=== PATIENT | male | born 1955 | race Caucasian/White ===

== ENCOUNTER 2022-06-06 13:34 | Inpatient (IN) | payer MEDICARE, OTHER ==
[~2022-06-06] VITALS: Ht 167.6 cm; Wt 54.0 kg
--- NOTE | 2022-06-06 13:40 | NUR ---
RECEIVED PT 67 YRS MALE TRANSFER BY CORINNE FROM [facility] FOR RT ARM AV SHUNT BLEEDING PT AWAKE FALLOW COMMAND
[2022-06-06] MEDS ORDERED: MIDODRINE HCL (5MG) 5 MG TABLET PO STA (13:50)
--- NOTE | 2022-06-06 13:50 | NUR ---
SEEN BY DR. DU
[2022-06-06] MEDS ORDERED: IV NS 0.9% 500 ML BAG IV ONE (14:00)
--- NOTE | 2022-06-06 14:00 | NUR ---
BLOOD DROW BY LAB TACH AT BED SIDE
--- NOTE | 2022-06-06 14:30 | NUR ---
NGUYỄN LEPE SENT TO LAB
[2022-06-06] MEDS ORDERED: ASPI-1169 PO (14:32)
[2022-06-06] MEDS ORDERED: BISA10SU11 RC (14:32)
[2022-06-06] MEDS ORDERED: SODI480S2 TD (14:32)
[2022-06-06] MEDS ORDERED: MIDO10TA PO (14:32)
[2022-06-06] MEDS ORDERED: FAMO20TA8 PO (14:32)
[2022-06-06] MEDS ORDERED: SIMV5TAB59 PO (14:32)
[2022-06-06] MEDS ORDERED: CYCL30DR EACHEYE (14:32)
[2022-06-06] MEDS ORDERED: INSU100I26 SQ (14:32)
[2022-06-06] MEDS ORDERED: OMEP20CA15 PO (14:32)
[2022-06-06] MEDS ORDERED: ACET-2605 PO (14:32)
[2022-06-06] MEDS ORDERED: BRIM5DRO2 EACHEYE (14:32)
[2022-06-06] MEDS ORDERED: INSU100I14 SQ (14:32)
[2022-06-06] MEDS ORDERED: NA P133E RC (14:32)
[2022-06-06] MEDS ORDERED: BIMA2.5D5 EACHEYE (14:32)
[2022-06-06] MEDS ORDERED: COLL30OI TP (14:32)
[2022-06-06] MEDS ORDERED: FERR325T23 PO (14:32)
[2022-06-06] MEDS ORDERED: TAMS-12 PO (14:32)
[2022-06-06] MEDS ORDERED: CHOL100043 PO (14:32)
[2022-06-06] MEDS ORDERED: FINA5TAB11 PO (14:32)
[2022-06-06] MEDS ORDERED: ACET-868 PO (14:32)
[2022-06-06] MEDS ORDERED: FLUD0.1T3 PO (14:32)
[2022-06-06] MEDS ORDERED: MAGN400O6 PO (14:32)
[2022-06-06] MEDS ORDERED: PIPE2.257 IV (14:32)
[2022-06-06] MEDS ORDERED: CALCIUM ALGINATE TD (14:32)
[2022-06-06] MEDS ORDERED: DORZ10DR10 EACHEYE (14:32)
[2022-06-06] MEDS ORDERED: HONE44PA TP (14:32)
[2022-06-06] MEDS ORDERED: EPOE1000 SQ (14:32)
[2022-06-06] MEDS ORDERED: MIDODRINE HCL (5MG) 5 MG TABLET ONE (14:41)
[2022-06-06 14:44] LABS: BASOPHILS % (AUTO) 0.2 % (0.0-2.0); EOSINOPHILS % (AUTO) 5.6 % (0.0-6.0); HEMATOCRIT 27 % (39-51); HEMOGLOBIN 8.5 g/dL (13.5-17.5); LYMPHOCYTES # (AUTO) 0.7 K/uL (0.8-4.8); LYMPHOCYTES % (AUTO) 29.9 % (20.0-44.0); MEAN CORPUSCULAR HGB CONC 32 g/dl (31.0-36.0); MEAN CORPUSCULAR VOLUME 95 fL (80-96); MONOCYTES # (AUTO) 0.2 K/uL (0.1-1.30); MONOCYTES % (AUTO) 8.7 % (2.0-12.0); NEUTROPHILS # (AUTO) 1.3 K/uL (1.8-8.9); NEUTROPHILS % (AUTO) 55.6 % (43.0-81.0); RED BLOOD CELL COUNT(AUTO) 2.82 MIL/uL (4.5-6.0); WHITE BLOOD COUNT (AUTO) 2.3 K/uL (4.3-11.0)
[2022-06-06 14:52] LABS: PLATELET COUNT (AUTO) 24 K/uL (150-450)
[2022-06-06 15:13] LABS: ALBUMIN 2.4 g/dL (3.4-5.0); BILIRUBIN,DIRECT 0.2 mg/dL (0.0-0.2); BILIRUBIN,TOTAL 0.6 mg/dL (0.2-1.0); CALCIUM, SERUM 8.3 mg/dL (8.5-10.1); POTASSIUM 4.7 mmol/L (3.5-5.1); TOTAL PROTEIN, SERUM 5.9 g/dL (6.4-8.2)
--- NOTE | 2022-06-06 15:14 | NUR ---
SHERRI AND AUGUSTINE OBSERVE PT
[2022-06-06] MEDS ORDERED: DEXTROSE 50%-WATER 50 ML DISP.SYRIN IV PRN (15:30)
[2022-06-06] MEDS ORDERED: ACETAMINOPHEN 325 MG TABLET PO PRN ×2 (15:30→19:30)
[2022-06-06] MEDS ORDERED: ACETAMINOPHEN ES 500 MG TABLET PO PRN (15:30)
[2022-06-06] MEDS ORDERED: MAGNESIUM HYDROXIDE 30 ML UDC PO PRN ×2 (15:30→19:30)
--- NOTE | 2022-06-06 15:47 | NUR ---
CALLED NURSING SUP REGARDING PT BED
--- NOTE | 2022-06-06 16:01 | NUR ---
ELIZABETH AT BED SIDE CONDITION UP DATE MATT HOFFMAN
[2022-06-06] MEDS ORDERED: Medication Not On Formulary EA (Cyclosporine (Restasis) 1 DROP) EACHEYE SCH (17:00)
[2022-06-06 17:37] LABS: BAND % (MANUAL) 2 % (0.0-5.0); EOSINOPHILS % (MANUAL) 4 % (0-4); LYMPHOCYTES % (MANUAL) 32 % (16-48); NEUTROPHILS % (MANUAL) 62 (42-76)
[2022-06-06] MEDS ORDERED: PIPERACILLIN /TAZOBACTAM 3.375 G in IV D5W 50 ML IV SCH (18:00)
[2022-06-06] MEDS: BLOOD SUGAR DIAGNOSTIC 1 EACH STRIP VI SCH (18:03)
--- NOTE | 2022-06-06 19:20 | NUR ---
SIGN CONSENT FOR BLOOD TRANSFUTION PT UNABLE TO SING FOR PT CONFUSED ON AND OFF AND WEEKNEES ON HIS FIGER
--- NOTE | 2022-06-06 19:28 | NUR ---
HAND OFF SYLVIE LEE
[2022-06-06] MEDS ORDERED: ZOLPIDEM TARTRATE 5 MG TABLET PO PRN (19:30)
[2022-06-06] MEDS ORDERED: INSULIN REGULAR, HUMAN 100 UNIT/ML 3 ML VIAL SQ PRN (19:30)
[2022-06-06] MEDS ORDERED: ONDANSETRON HCL/PF 4 MG/2 ML VIAL IVP PRN (19:30)
[2022-06-06] MEDS ORDERED: MAG HYDROX/AL HYDROX/SIMETH 30 ML UDC PO PRN (19:30)
[2022-06-06] MEDS ORDERED: Z GUARD REMEDY 4 OZ OINT TP PRN (19:30)
[2022-06-06] MEDS ORDERED: PHYTONADIONE INJ 1 MG/0.5 ML AMPUL SQ ONE (20:00)
[2022-06-06] MEDS: BIMATOPROST 2.5 ML DROPS OP SCH (23:51)
[2022-06-07] VITALS (14 sets, daily range): BP systolic 102–156; BP diastolic 50–78
--- NOTE | 2022-06-07 00:58 | NUR ---
Trevor bhagat in [facility] - 06/07/22 at 0118 by ELKE REPORT GIVEN TO JESUS MATHEW.
--- NOTE | 2022-06-07 00:58 | NUR ---
REPORT GIVEN TO JESUS GARZA.
--- NOTE | 2022-06-07 01:16 | NUR ---
PT TRANSFERRED TO ROOM 113-2.
[2022-06-07 01:36] LABS: BASOPHILS % (AUTO) 0.8 % (0.0-2.0); EOSINOPHILS % (AUTO) 6.7 % (0.0-6.0); HEMATOCRIT 30 % (39-51); HEMOGLOBIN 9.6 g/dL (13.5-17.5); LYMPHOCYTES # (AUTO) 0.9 K/uL (0.8-4.8); LYMPHOCYTES % (AUTO) 31.7 % (20.0-44.0); MEAN CORPUSCULAR HGB CONC 32 g/dl (31.0-36.0); MEAN CORPUSCULAR VOLUME 92 fL (80-96); MONOCYTES # (AUTO) 0.3 K/uL (0.1-1.30); MONOCYTES % (AUTO) 10.3 % (2.0-12.0); NEUTROPHILS # (AUTO) 1.5 K/uL (1.8-8.9); NEUTROPHILS % (AUTO) 50.5 % (43.0-81.0); WHITE BLOOD COUNT (AUTO) 2.9 K/uL (4.3-11.0)
[2022-06-07 01:48] LABS: PLATELET COUNT (AUTO) 24 K/uL (150-450)
[2022-06-07] MEDS ORDERED: PIPERACILLIN /TAZOBACTAM 3.375 G VIAL IV ONE (02:03)
[2022-06-07 02:05] LABS: D-DIMER 1.57 mg/L(FEU (0.17-0.50)
[2022-06-07] MEDS: TAMSULOSIN 0.4 MG CAP.SR.24H PO SCH ×2 (02:07→21:25)
[2022-06-07] MEDS: BLOOD SUGAR DIAGNOSTIC 1 EACH STRIP IN SCH ×5 (02:19→21:48)
[2022-06-07] MEDS: BLOOD SUGAR DIAGNOSTIC 1 EACH STRIP VI SCH (02:20)
[2022-06-07] MEDS: *INSULIN REGULAR(HUMULIN R)HUM 100 UNIT/ML VIAL SQ PRN (02:29)
--- NOTE | 2022-06-07 06:03 | NUR ---
RN NOTE INFORMED VEL HIRED HELP PATIENT RECTAL TEMP 93.6. NO ACTIVE BLEEDING BP 120/ HR 60. SILVANA HUGGER ALREADY APPLIED. PATIENT ROOM IS VERY COLD. RECEIVED ORDER TO MOVE ROOM. APPLY WARM BLANKETS AND WARMING PACKS.
--- NOTE | 2022-06-07 06:05 | NUR ---
RN NOTE INFORMED VEL TEAR DOWN WORKER THAT PATIENT DID NOT RECEIVE VITAMIN K. NO NEW LABS FOR COAGS DRAWN. THERE IS ORDERS FOR CBC Q6HR. DISCUSSING POSSIBLE WRONG DATE ENTERED BY LAB. OFFERED TO CALL [facility] FOR VITAMIN K TO BE VERIFIED AND GIVEN, STATED TO WAIT FOR AM COAGS. WILL ENDORSE TO ONCOMING SHIFT. ALSO INFORMED HER PLATELETS JUST BECAME AVAILABLE. 2 UNITS OF FFP STILL NOT AVAILABLE.
--- NOTE | 2022-06-07 06:20 | NUR ---
RN NOTE PATIENT TRANSFERED TO DIFFERENT ROOM. SILVANA TANNER IN TOW. WARM PACKS AND WARM BLANKETS APPLIED.
[2022-06-07 07:23] LABS: BASOPHILS % (AUTO) 0.6 % (0.0-2.0); EOSINOPHILS % (AUTO) 7.2 % (0.0-6.0); HEMATOCRIT 29 % (39-51); HEMOGLOBIN 9.4 g/dL (13.5-17.5); LYMPHOCYTES # (AUTO) 0.9 K/uL (0.8-4.8); LYMPHOCYTES % (AUTO) 36.2 % (20.0-44.0); MEAN CORPUSCULAR HGB CONC 32 g/dl (31.0-36.0); MEAN CORPUSCULAR VOLUME 91 fL (80-96); MONOCYTES # (AUTO) 0.3 K/uL (0.1-1.30); MONOCYTES % (AUTO) 11.4 % (2.0-12.0); NEUTROPHILS # (AUTO) 1.1 K/uL (1.8-8.9); NEUTROPHILS % (AUTO) 44.6 % (43.0-81.0); RED BLOOD CELL COUNT(AUTO) 3.22 MIL/uL (4.5-6.0); WHITE BLOOD COUNT (AUTO) 2.5 K/uL (4.3-11.0)
[2022-06-07] MEDS: PANTOPRAZOLE 40 MG TABLET.DR PO SCH (07:30)
[2022-06-07 07:34] LABS: PLATELET COUNT (AUTO) 23 K/uL (150-450)
[2022-06-07 07:36] LABS: ALBUMIN 2.4 g/dL (3.4-5.0); BILIRUBIN,TOTAL 0.8 mg/dL (0.2-1.0); CALCIUM, SERUM 8.3 mg/dL (8.5-10.1); CREATININE 2.3 mg/dL (0.6-1.3); PHOSPHORUS 3.1 mg/dL (2.5-4.9); POTASSIUM 4.7 mmol/L (3.5-5.1); TOTAL PROTEIN, SERUM 5.7 g/dL (6.4-8.2)
--- NOTE | 2022-06-07 07:45 | NUR ---
RN CLOSING NOTE A/OX1. ROOM AIR. SINUS RHYTHM/ SINUS GERDA ON THE MONITOR HR LOW 59. COLOSTOMY BAG WITH GREEN LIQUID OUTPUT. PATIENT HAS BEEN NPO SINCE ARRIVAL TO UNIT. PLAN FOR SURGERY 1500 FOR PERMA CATH AND AV SHUNT REVISION. RENÉ AV SHUNT IS WRAPPED IN BALDEV WRAP, SCANT BLEEDING NOTED. WOUND CONSULT ENTERED. PLAN FOR PLATELET TRANSFUSION X1, AND FFP TRANSFUSION X2. PATIENT DID HAVE AN EPISODE HYPOTHERMIA, WITH SILVANA HUGGER AND WARMING MEASURES DONE.
--- NOTE | 2022-06-07 08:00 | NUR ---
HZEN RN noted Received patient in the bed, sleeping but easily response to verbal stimuli, alert x1. Patient has right BKA and RENÉ fistula, wrapped with BALDEV bandage, noted swollen on this arm, released bandage, keep arm elevated, no bleeding noted at this time. Left hand IV HL not flushing well, new one placed on left wrist rajinder 20. Patient on NPO at this time. Will administer platelets as soon as we have call from lab. Call light within reach, safety measures within reach, bed alarm is on, will continue to monitor.
[2022-06-07] MEDS: FINASTERIDE (5 MG) 5 MG TABLET PO SCH (09:00)
[2022-06-07] MEDS: CHOLECALCIFEROL 1,000 UNIT TABLET (VIT D3) PO SCH (09:00)
[2022-06-07] MEDS: FLUDROCORTISONE 0.1 MG TABLET PO SCH (09:00)
[2022-06-07] MEDS: MIDODRINE HCL (5MG) 5 MG TABLET PO SCH ×2 (09:00→16:47)
[2022-06-07] MEDS: FERROUS SULFATE (325 MG) 325 MG/TAB TABLET PO SCH (09:00)
[2022-06-07] MEDS: BRIMONIDINE TARTRATE OPHT SOLN 5 ML BOTTLE EACHEYE SCH (09:02)
[2022-06-07] MEDS: PIPERACILLIN /TAZOBACTAM 3.375 G in IV D5W 50 ML IV SCH ×4 (09:02→23:25)
[2022-06-07] MEDS: TIMOLOL 0.5% SOLN OPHTH 5 ML BOTTLE EACHEYE SCH (09:02)
[2022-06-07] MEDS: DORZOLAMIDE OPTH 2% 10 ML BOTTLE EACHEYE SCH (09:02)
[2022-06-07 09:43] LABS: BAND % (MANUAL) 4 % (0.0-5.0); EOSINOPHILS % (MANUAL) 4 % (0-4); LYMPHOCYTES % (MANUAL) 26 % (16-48); MONOCYTES % (MANUAL) 7 % (0-11.0); NEUTROPHILS % (MANUAL) 59 (42-76)
--- NOTE | 2022-06-07 10:00 | NUR ---
ZHEN RN NOTE PLATELETS TRANSFUSION ,NO ADVERSE REACTION NOTED AT THIS TIME
[2022-06-07 10:31] LABS: BAND % (MANUAL) 4 % (0.0-5.0); EOSINOPHILS % (MANUAL) 7 % (0-4); LYMPHOCYTES % (MANUAL) 31 % (16-48); MONOCYTES % (MANUAL) 8 % (0-11.0); NEUTROPHILS % (MANUAL) 50 (42-76)
--- NOTE | 2022-06-07 11:03 | NUR ---
ZHEN RN NOTE CALLED DAUGHTER HERNESTO AX3 TO GET CONSENT FOR AV FISTULA REPAIR AND SPOUSE JAIME X2 LEFT A MASSAGE NO CALLED BACK YET ALSO CALLED TO DR LARSON NOTIFIED THAT FAMILY NOT CALLING BACK YET STATED NEED CONSENT FROM FAMILY OR WILL CANCELL PROCEDURE
[2022-06-07] MEDS ORDERED: PIPERACILLIN /TAZOBACTAM 3.375 G in IV D5W 50 ML IV SCH ×3 (12:00)
--- NOTE | 2022-06-07 12:32 | NUR ---
HYDRAULIC MECHANIC NOTE CALLED BACK ,TELEPHONE CONSEPT FOR HD CATH PLACE DONE , PLATELET COMPLETED BP 107/60 NO ADDRESS REACTION NOTED Addendum: 06/07/22 at 1250 by ALBERTO LUND RN CONSENT FOR HD TX OBTAINED WITH GUS
--- NOTE | 2022-06-07 13:35 | NUR ---
shiloh lee note per Thomas lee dental ceramist helper hold plasma transfusion inr is improving will call blood bank Addendum: 06/07/22 at 1339 by ALBERTO LUND RN ALSO PER THOMAS LEE ASSEMBLER WET WASH OK TO START RENAL DIET AND SWALLOW EVAL, WILL F\U
[2022-06-07] MEDS ORDERED: IOHEXOL 0 ML IV ONE (13:37)
[2022-06-07] MEDS ORDERED: LIDOCAINE HCL/MPF 1% 30 ML VIAL IJ ONE (13:37)
[2022-06-07] MEDS ORDERED: HEPARIN SODIUM, PORCINE 1,000 UNIT/ML VIAL ONE (13:38)
[2022-06-07] MEDS ORDERED: LIDOCAINE 1% INJ 50 ML MDV IJ ONE (13:39)
[2022-06-07] MEDS ORDERED: IOHEXOL 240MG/ML 0 ML IV ONE ×2 (13:41→13:42)
[2022-06-07] MEDS ORDERED: CELLULOSE,OXIDIZED 1 EACH EACH MC ONE (13:45)
--- NOTE | 2022-06-07 14:48 | NUR ---
PUTTER IN NOTE PATIENT TAKEN TO OR WITH OR NURSE
[2022-06-07] MEDS ORDERED: PROPOFOL 100 ML ONE (15:01)
[2022-06-07] MEDS ORDERED: FENTANYL PF 100MCG/2ML AMPUL ONE (15:01)
[2022-06-07 15:03] LABS: HEMOGLOBIN 9.1 g/dL (13.5-17.5); MONOCYTES # (AUTO) 0.2 K/uL (0.1-1.30); NEUTROPHILS # (AUTO) 1.5 K/uL (1.8-8.9); WHITE BLOOD COUNT (AUTO) 2.8 K/uL (4.3-11.0)
[2022-06-07 15:08] LABS: BASOPHILS % (AUTO) 1.4 % (0.0-2.0); EOSINOPHILS % (AUTO) 5.4 % (0.0-6.0); HEMATOCRIT 29 % (39-51); LYMPHOCYTES % (AUTO) 34.1 % (20.0-44.0); MEAN CORPUSCULAR HGB CONC 32 g/dl (31.0-36.0); MEAN CORPUSCULAR VOLUME 92 fL (80-96); MONOCYTES % (AUTO) 6.9 % (2.0-12.0); NEUTROPHILS % (AUTO) 52.2 % (43.0-81.0); RED BLOOD CELL COUNT(AUTO) 3.12 MIL/uL (4.5-6.0)
[2022-06-07 15:10] LABS: PLATELET COUNT (AUTO) 43 K/uL (150-450)
--- NOTE | 2022-06-07 15:32 | NUR ---
METAL EXPEDITER NOTE CALLED TO LAB FO FIBRINOGEN RESULT STATED MACHINE IS BROKEN WILL RERUN AGAIN, WILL F\U STATED THAT WILL CALL US, SPOKE WITH KHRIS
--- NOTE | 2022-06-07 16:00 | NUR ---
television servicer note back from or, per report pat rn or nurse av fistula is working well ,no need to change , hd nurse at bedside ,ok to do hd tx tomorrow
--- NOTE | 2022-06-07 16:12 | NUR ---
telecommunications engineer note
--- NOTE | 2022-06-07 16:34 | NUR ---
cable television technician note called blood bank , notified that we need 10 units of cryo ststed that to prepare it takes about45 min will f\u
[2022-06-07 16:46] LABS: THYROID STIMULATING HORMONE 6.597 uIU/mL (0.358-3.74)
[2022-06-07 16:58] LABS: C-REACTIVE PROTEIN 4.6 mg/dL (0.0-0.9)
--- NOTE | 2022-06-07 17:46 | NUR ---
telecom billing analyst note called blood bank spoke with alethea about cryo to be ready to transfuse stated still not ready ,will f\u
--- NOTE | 2022-06-07 18:00 | NUR ---
telephone sex worker note SPOKE WITH BART LEE SAMPLE SUPERVISOR BULK DELIVERY DRIVER ABOUT ORDER VIT K STATED NO NEED TODAY ALSO OK TO HOLD PLASMA AND OK TO GIVE CRYO TODAY STILL AWAITING FROM LAB
--- NOTE | 2022-06-07 18:27 | NUR ---
vulcanizer operator Notes Patient awake alert with some confusion. Patient has colostomy on right lower quadrant of abdomen with green brown color liquid stool noted. Started on purred diet, tolerated well, chest X Ray done, no results yet. Called DR Manuel ordered Vit K. Will follow up. Ultrasound abdomen will done soon. Safety measures implemented, right upper arm fistula in place with bruit sound. IV on left wrist intact and flushed well, will continue to monitor
[2022-06-07] MEDS: PHYTONADIONE INJ 10 MG/1 ML AMPUL SQ SCH (18:34)
--- NOTE | 2022-06-07 18:40 | NUR ---
SOFTWARE ASSET MANAGEMENT ANALYST NOTE CALLED BLOOD BANK ,SPOKE WITH KRISTINE STATED THAT BLOOD NOT READY YET, WILL BE READY IN 45 MINUTES WILL F\U
--- NOTE | 2022-06-07 19:30 | NUR ---
manager retail store opening note Received patient in bed, awake, daughter on bed side. Pt is a/o x 1, st helenian speaking only. Currently on RA, tolerating well, sating @ 98%. monitoring analyst reads SR, HR 70s. IV access on L wrist, #20g. Patent and intact. RENÉ Fistula noted. Colostomy noted, draining greenish-colored output. Patient has right BKA and L foot stump. All safety measures in place: Bed locked in low position, bed alarm on. Call light within reach. Will continue to monitor.
[2022-06-07 21:09] LABS: EOSINOPHILS % (MANUAL) 3 % (0-4); LYMPHOCYTES % (MANUAL) 28 % (16-48); MONOCYTES % (MANUAL) 3 % (0-11.0); NEUTROPHILS % (MANUAL) 66 (42-76)
[2022-06-07] MEDS: SIMVASTATIN 10 MG TABLET PO SCH (21:25)
[2022-06-07] MEDS: BIMATOPROST 2.5 ML DROPS OP SCH (21:56)
--- NOTE | 2022-06-07 23:05 | NUR ---
RN NOTE CRYO TRANSFUSION STARTED @ 2303 INITIAL VS TEMP: 97.9 PULSE: 72 RR: 20 BP: 114/63
--- NOTE | 2022-06-07 23:30 | NUR ---
RN NOTE CRYO TRANSFUSION ON GOING. NO ADVERSE REACTION NOTED SO FAR. ALL VS STABLE.
[2022-06-08] VITALS (64 sets, daily range): BP systolic 87–184; BP diastolic 36–94
--- NOTE | 2022-06-08 00:43 | NUR ---
RN NOTE CRYO TRANSFUSION ENDED @ 0041. NO ADVERSE REACTION NOTED. ALL VS STABLE.
--- NOTE | 2022-06-08 01:30 | NUR ---
RN NOTE SECOND BAG OF CRYO STARTED. ALL VS WNL.
--- NOTE | 2022-06-08 02:30 | NUR ---
RN NOTE PT IN BED, RESTING COMFORTABLY. PM CARE DONE. TURNED AND REPOSITIONED. PT IN NO APPARENT DISTRESS.
--- NOTE | 2022-06-08 04:42 | NUR ---
PATIENT NOTED DROPPING SUDDENLY FROM SINUS RHYTHM TO GERDA 30 IN MONITOR, RUN TO ROOM AND LEAD PROGRAMMER JUST FINISHED TAKING VITALS SIGNS, UNABLE TO GET PULSE O2 LEVEL, NOTED RT DOING ROUNDS AT THAT TIME, SUMMONED TO ROOM, PATIENT NOT BREATHING, PULSE UNABLE TO OBTAIN, START BAGGING PATIENT AND CHEST COMPRESSIONS INITIATED, ASHLIE MI CALLED, PLEASE SEE ASHLIE MI REPORT FOR DETAILS.
--- NOTE | 2022-06-08 04:50 | NUR ---
RN NOTE CODE BLUE WAS CALLED. PT'S EKG DROPPED IN LESS THAN A MINUTE. PT WAS SR THE WHOLE NIGHT. AT AROUND 0443, PT SUDDENLY WENT SB. O2 SAT WAS CHECKED AND IT WAS @ 4%. PT WAS INTUBATED AND BROUGHT TO ICU FOR FURTHER MONITORING AND TREATMENT.
--- NOTE | 2022-06-08 05:00 | NUR ---
BAKERY ASSISTANT OPENING NOTE PT RECEIVED AFTER CODE BLUE, FOUND ASYSTOLE AND FOUND O2SAT TO BE 4%, BG 10 MG/DL. PT INTUBATED WITH ETT SIZE 7.5, 23 CM AT THE LIP WITH O2SAT 100%; NO S/S OF RESP DISTRESS, NO SOB OR COUGH, NON-LABORED AND EQUAL BREATHING. PT ATTACHED TO BEDSIDE MONITOR, SR WITH HR OF 78. PT OPENS EYES, APPEARS COMFORTABLE OVERALL. RLQ COLOSTOMY IN PLACE WITH SOFT BROWN STOOL. RFA AV FISTULA IN PLACE WITH BRUIT AUSCULTATED AND BRUIT PALPABLE. IV ACCESS ON LFA 20G, INTACT AND PATENT, NS TKO INFUSING. BILATERAL SOFT WRIST RESTRAINTS IN PLACE, NO SIGNS OF IMPAIRED SKIN OR CIRCULATION. BED IN LOWEST POSITION, CALL LIGHT WITHIN REACH, SIDE RAILS UP X3. WILL CONTINUE TO MONITOR THROUGHOUT THE NIGHT.
--- NOTE | 2022-06-08 05:05 | NUR ---
SPENCER JULIO AWARE THAT PATIENT CODED, WAS INTUBATED AND TRANSFERRED TO ICU TO ROOM 256, AND HE REPLIED WITH ORDERS FOR CXR, EKG, CBC, BMP, WILL INFORM FAMILY REGARDING TRANSFER.
[2022-06-08] MEDS: PIPERACILLIN /TAZOBACTAM 3.375 G in IV D5W 50 ML IV SCH ×3 (05:17→17:34)
--- NOTE | 2022-06-08 05:23 | NUR ---
CALLED DAUGHTER MATT AT [phone], UNABLE TO REACH LEFT MESSAGE REGARDING HER FATHER TRANSFER TO ICU ROOM 256, AND THAT SHE CAN CALL FOR MORE DETAILS AT OUR PHONE NUMBER OR ICU DEPARTMENT.
[2022-06-08] MEDS ORDERED: BLOOD SUGAR DIAGNOSTIC 1 EACH STRIP IN PRN (05:30)
[2022-06-08 05:45] LABS: HEMATOCRIT 29 % (39-51); HEMOGLOBIN 8.8 g/dL (13.5-17.5); MEAN CORPUSCULAR HGB CONC 31 g/dl (31.0-36.0); MEAN CORPUSCULAR VOLUME 95 fL (80-96); WHITE BLOOD COUNT (AUTO) 4.9 K/uL (4.3-11.0)
[2022-06-08 05:46] LABS: BASOPHILS % (AUTO) 0.6 % (0.0-2.0); EOSINOPHILS % (AUTO) 3.7 % (0.0-6.0); LYMPHOCYTES % (AUTO) 39.9 % (20.0-44.0); MONOCYTES # (AUTO) 0.3 K/uL (0.1-1.30); MONOCYTES % (AUTO) 5.8 % (2.0-12.0); NEUTROPHILS # (AUTO) 2.5 K/uL (1.8-8.9); PLATELET COUNT (AUTO) 41 K/uL (150-450)
--- NOTE | 2022-06-08 05:50 | NUR ---
RT NOTE CALLED TO ROOM FOR PT DESATTING. PT WAS AGONAL BREATHING THEN BECAME APNEIC. ACLS PROTOCOL INTITIATED AND PT INTUBATED VIA 7.5 ETT @ 23 CM LIPLINE. EQUAL BS & POSITIVE COLOR CHANGE NOTED. PT TRANSFERRED TO ICU AND PLACED ON [facility] V[facility] AC 16,450,100%,+[address] BERRY'S ORDER. ABG DONE AND FIO2 TITRATED. WILL CONT TO MONITOR.
[2022-06-08 06:01] LABS: ALBUMIN 2.5 g/dL (3.4-5.0); BILIRUBIN,TOTAL 0.7 mg/dL (0.2-1.0); CALCIUM, SERUM 8.9 mg/dL (8.5-10.1); CREATININE 3.1 mg/dL (0.6-1.3); MAGNESIUM 2.1 mg/dL (1.8-2.4); PHOSPHORUS 3.9 mg/dL (2.5-4.9); POTASSIUM 4.9 mmol/L (3.5-5.1); TOTAL PROTEIN, SERUM 6.3 g/dL (6.4-8.2)
[2022-06-08 06:21] LABS: CREATININE 3.1 mg/dL (0.6-1.3)
--- NOTE | 2022-06-08 07:00 | NUR ---
received in bed , eyes open cannot follow simple command orally intubated, fio2 is 24% saturation is 99% OG tube iinserted , pending chest xray. 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 family said it was done 2021. Will continue to monitor
[2022-06-08] MEDS: PANTOPRAZOLE 40 MG TABLET.DR PO SCH (07:30)
[2022-06-08] MEDS ORDERED: DEXTROSE 50%-WATER 50 ML DISP.SYRIN IV ONE ×2 (08:01→11:10)
[2022-06-08] MEDS ORDERED: EPINEPHRINE (1:10,000) SYRINGE 1 MG/10 ML DISP.SYRIN IVP ONE ×2 (08:01→11:10)
[2022-06-08] MEDS ORDERED: CALCIUM CHLORIDE 1,000 MG/10 ML DISP.SYRIN IV ONE ×2 (08:01→11:10)
[2022-06-08 08:07] LABS: IMMUNOGLOBULIN A, SERUM 726 mg/dL (61-437); IMMUNOGLOBULIN G, SERUM 1077 mg/dL (603-1613); IMMUNOGLOBULIN M, SERUM 24 mg/dL (20-172)
[2022-06-08 08:11] LABS: D-DIMER 10.02 mg/L(FEU (0.17-0.50)
[2022-06-08] MEDS: BLOOD SUGAR DIAGNOSTIC 1 EACH STRIP IN SCH ×4 (08:24→21:24)
[2022-06-08 08:36] LABS: ABG BASE EXCESS -0.9 mmol/L; ABG OXYGEN SATURATION 99.5 % (92.0-98.5); ABG PCO2 39.2 mmHg (35.0-45.0); ABG PO2 446.3 mmHg (75.0-100.0); AaDO2 227.5 mmHg; COHb 0.3 % (0.5-1.5); MetHb 0.1 % (0.0-1.5); O2Hb 99.1 % (94.0-97.0); PEEP,BG 5 cm H2O; SITE, ABG Right Radial
[2022-06-08] MEDS: TIMOLOL 0.5% SOLN OPHTH 5 ML BOTTLE EACHEYE SCH (09:00)
[2022-06-08] MEDS ORDERED: PROPOFOL 100 ML IV PRN (09:00)
[2022-06-08] MEDS: FINASTERIDE (5 MG) 5 MG TABLET PO SCH (09:00)
[2022-06-08] MEDS: FERROUS SULFATE (325 MG) 325 MG/TAB TABLET PO SCH (09:00)
[2022-06-08] MEDS: FAMOTIDINE (20 MG) 20 MG TABLET PO SCH (09:00)
[2022-06-08] MEDS: DORZOLAMIDE OPTH 2% 10 ML BOTTLE EACHEYE SCH (09:00)
[2022-06-08] MEDS: FLUDROCORTISONE 0.1 MG TABLET PO SCH (09:00)
[2022-06-08] MEDS: CHOLECALCIFEROL 1,000 UNIT TABLET (VIT D3) PO SCH (09:00)
[2022-06-08] MEDS: MIDODRINE HCL (5MG) 5 MG TABLET PO SCH (09:00)
[2022-06-08 09:29] LABS: EOSINOPHILS % (MANUAL) 4 % (0-4); LYMPHOCYTES % (MANUAL) 28 % (16-48); MONOCYTES % (MANUAL) 4 % (0-11.0); NEUTROPHILS % (MANUAL) 64 (42-76)
[2022-06-08 09:42] LABS: BILIRUBIN,DIRECT 0.3 mg/dL (0.0-0.2)
[2022-06-08] MEDS ORDERED: Sodium Chloride 77 MEQ in IV 10% DEXTROSE 1,000 ML IV ONE (10:00)
--- NOTE | 2022-06-08 11:12 | NUR ---
WOUND CARE CONSULT: PT UNSTABLE FOR TURNING/SKIN ASSESSMENT AT THIS TIME. ADMISSION PHOTOS INDICATE SACRAL DEEP TISSUE INJURY AND LOWER EXTREMITY DISCOLORATIONS/WOUNDS, PRESENT ON ADMISSION. WILL SEE PT PT CONDITION PERMITS. DISCUSSED SKIN PROTECTION WITH NURSING STAFF. PT IS CURRENTLY INTUBATED. IN AGREEMENT WITH PLAN OF CARE.
[2022-06-08] MEDS: LATANOPROST EYE DROP 0.005% 2.5 ML BOTTLE EACHEYE SCH (11:53)
[2022-06-08] MEDS: BRIMONIDINE TARTRATE OPHT SOLN 5 ML BOTTLE EACHEYE SCH (11:54)
[2022-06-08 12:07] LABS: *ANA ANTI-CENTROMERE B AB <0.2 AI (0.0-0.9); *ANA ANTI-DNA(DS) AB, QN <1 IU/mL (0-9); *ANA ANTI-JO-1 <0.2 AI (0.0-0.9); *ANA ANTICHROMATIN ANTIBODY <0.2 AI (0.0-0.9); *ANA RNP ANTIBODIES 0.2 AI (0.0-0.9); *ANA SJOGREN'S ANTI-SS-A <0.2 AI (0.0-0.9); *ANA SJOGREN'S ANTI-SS-B <0.2 AI (0.0-0.9); *ANAANTI-SCLERODERMA-70 AB <0.2 AI (0.0-0.9); *ANASMITH AB <0.2 AI (0.0-0.9)
[2022-06-08] MEDS: DEXTROSE 50%-WATER 50 ML DISP.SYRIN IV PRN (12:29)
--- NOTE | 2022-06-08 13:00 | NUR ---
DIALYSIS STARTED WILL HOLD ALL MEDICATION AT THIS TIME, BS IS NOW 134MGDL FAMILY IS AT BED SIDE
[2022-06-08] MEDS: NOREPINEPHRINE 32 MG in IV NS 0.9% 218 ML IV PRN (13:16)
[2022-06-08 15:07] LABS: *SPE A/G RATIO 1.2 (0.7-1.7); *SPE ALPHA-1-GLOBULIN 0.2 g/dL (0.0-0.4); *SPE ALPHA-2-GLOBULIN 0.4 g/dL (0.4-1.0); *SPE BETA GLOBULIN 0.8 g/dL (0.7-1.3); *SPE M-SPIKE Not Observed g/dL (Not Observed)
[2022-06-08] MEDS: MIDODRINE HCL (5MG) 5 MG TABLET PEG SCH ×2 (15:30→16:51)
[2022-06-08] MEDS: ALBUMIN 25% 25 GM in PREMIX 1 EA IV PRN (15:46)
--- NOTE | 2022-06-08 16:00 | NUR ---
1 LITER GIVEN DURING DIALYSIS, LEVOPHEN ON HOLD VITALS STATED
[2022-06-08] MEDS ORDERED: NEPRO 1,000 ML BOTTLE GT PRN (17:00)
--- NOTE | 2022-06-08 20:10 | NUR ---
PT RCVD ORALLY INTUBATED W/ 7.5 ETT SECURED @ 23CM LIP LINE ON [facility] VENT SETTINGS OF AC 16 ,VT 450, FIO2 24%, PEEP 5. VENT PLUGGED INTO RED OUTLET, VENT ALARMS ON AND AUDIBLE. AMBU BAG AT BEDSIDE. NO RESPIRATORY DISTRESS NOTED AT THIS TIME. WILL CONTINUE TO MONITOR T/O SHIFT.
--- NOTE | 2022-06-08 20:50 | NUR ---
MEDICAL VIDEOGRAPHER OPENING NOTE PT RECEIVED IN BED, A/O X0, OPENS EYES. PT WITH ETT SIZE 7.5, 23 CM AT THE LIP, AC 16, TV 450, FIO2 24%, PEEP 5 WITH CURRENT O2SAT OF 99%; NO S/S OF RESP DISTRESS, NO SOB OR COUGH, NON-LABORED AND EQUAL BREATHING, RESPIRATIONS WITHIN NORMAL LIMITS, NOT OVER-BREATHING VENT; APPEARS COMFORTABLE OVERALL. PT ATTACHED TO BEDSIDE MONITOR, SR WITH HR OF 69. COLOSTOMY INTACT AND PATENT, WITH SOFT BROWN STOOL. RIGHT AV FISTULA INTACT, THRILL PALPABLE AND BRUIT AUSCULTATED. OGT AT 60 CM WITH NEPRO CURRENTLY T 20 ML/HR; WILL ADVANCE RATE TOLERATED. SARAH MIDLINE INTACT AND PATENT, FLUSHES EASILY WITH NO RESISTANCE; NS TKO INFUSING. BED IN LOWEST POSITION, CALL LIGHT WITHIN REACH, SIDE RAILS UP X3. WILL CONTINUE TO MONITOR THROUGHOUT THE NIGHT.
[2022-06-08] MEDS: SIMVASTATIN 10 MG TABLET PO SCH (21:03)
[2022-06-08] MEDS: TAMSULOSIN 0.4 MG CAP.SR.24H PO SCH (21:03)
[2022-06-08] MEDS: *INSULIN REGULAR(HUMULIN R)HUM 100 UNIT/ML VIAL SQ PRN (22:03)
[2022-06-09] VITALS (51 sets, daily range): BP systolic 82–193; BP diastolic 28–100
[2022-06-09] MEDS: PIPERACILLIN /TAZOBACTAM 3.375 G in IV D5W 50 ML IV SCH ×5 (00:04→23:55)
[2022-06-09] MEDS: BLOOD SUGAR DIAGNOSTIC 1 EACH STRIP IN SCH ×6 (00:24→21:11)
[2022-06-09] MEDS: *INSULIN REGULAR(HUMULIN R)HUM 100 UNIT/ML VIAL SQ PRN (00:28)
[2022-06-09 04:09] LABS: CALCIUM, SERUM 8.9 mg/dL (8.5-10.1); CREATININE 2.5 mg/dL (0.6-1.3); POTASSIUM 3.9 mmol/L (3.5-5.1)
[2022-06-09] MEDS: DEXTROSE 50%-WATER 50 ML DISP.SYRIN IV PRN (04:49)
--- NOTE | 2022-06-09 04:49 | NUR ---
RN NOTE PT NOTED TO HAVE BG OF 58 MG/DL. D50 ADMINISTERED. WILL REASSESS IN 1 HR. Addendum: 06/09/22 at 0451 by PRINCESS SUSANNA LEE WILL REASSESS IN 30 MIN.
--- NOTE | 2022-06-09 05:19 | NUR ---
RN NOTE BG RECHECKED WITH RESULT OF 128 MG/DL
[2022-06-09 05:23] LABS: BASOPHILS % (AUTO) 0.4 % (0.0-2.0); HEMATOCRIT 25 % (39-51); LYMPHOCYTES # (AUTO) 0.8 K/uL (0.8-4.8); MEAN CORPUSCULAR HGB CONC 32 g/dl (31.0-36.0); MEAN CORPUSCULAR VOLUME 91 fL (80-96); MONOCYTES # (AUTO) 0.3 K/uL (0.1-1.30); MONOCYTES % (AUTO) 5.6 % (2.0-12.0); NEUTROPHILS # (AUTO) 3.6 K/uL (1.8-8.9); RED BLOOD CELL COUNT(AUTO) 2.73 MIL/uL (4.5-6.0)
[2022-06-09 05:35] LABS: PLATELET COUNT (AUTO) 37 K/uL (150-450)
--- NOTE | 2022-06-09 06:00 | NUR ---
RN NOTE RECEIVED CRITICAL OF PLTS 37, TRENDING DOWN FROM 41 WITH NO SIGNS OF BLEEDING. SPENCER JULIO NOTIFIED; AWAITING RESPONSE
--- NOTE | 2022-06-09 06:45 | NUR ---
CONVOLUTE TUBE WINDER CLOSING NOTE PT REMAINS IN BED, OPENS EYES, NEURO STATUS SAME. CONTINUES ON SAME VENT SETTINGS; TOLERATING WELL WITH O2SAT RANGING FROM 97%-100% AND RESPIRATIONS FROM 8-18; NO S/S OF RESP DISTRESS, NO SOB OR COUGH, NON-LABORED AND EQUAL BREATHING; APPEARS COMFORTABLE OVERALL. ATTACHED TO BEDSIDE MONITOR, SR WITH HR RANGING FROM 65-84. COLOSTOMY BAG CHANGED AND OSTOMY CLEANSED; OSTOMY IS PINK AND MOIST WITH BROWN, LIQUID STOOL. SACRAL DTI CLEANSED AND NEW MEPILEX APPLIED. BILATERAL SOFT WRIST RESTRAINTS REMAIN IN PLACE; PT PROVIDED WITH RELEASE OF RESTRAINTS AND HYGIENE; NO SIGNS OF IMPAIRED SKIN OR CIRCULATION. OGT IN PLACE AT 60 CM WITH NEPRO NOW AT 40 ML/HR; TOLERATING WELL WITH NO RESIDUALS. SARAH MIDLINE INTACT WITH NS TKO AND LEVO AT 0.04 MCG/KG/MIN. ALL DUE MEDS ADMINISTERED DURING THE NIGHT. BED IN LOWEST POSITION, CALL LIGHT WITHIN REACH, SIDE RAILS UP X3. WILL ENDORSE TO DAYSHIFT NURSE TO CONTINUE CARE.
--- NOTE | 2022-06-09 07:00 | NUR ---
0700 RECEIVED IN BED , EYES OPEN BUT NOT TRACKING AND NOT FOLLOWING SIMPLE COMMAND. ON A/C MODE ON VENTILATOR FIO2 24%, PLAN TO TRY SIMV MODE TODAY GTUBE FEEDING INTACT, NO RESIDUAL NEPRO 50CC/HR BLOOD SUGAR 129MG/DL, LEVOPHEN IS AT 0.04MCG NO SIGNS OF DISTRESS. TURNED AND REPOSITIONED, OPTIFORM ON SACRAL. CLEAN AND DRY 0830- SIMV MODE , SIMV 4, PS 15, PEEP 5 NO DISTRESS , PATIENT TOLERATED SIMV MODE FOR 4 HOURS. WOUND CARE NURSE ASSESSED SACRAL WOUND, PRESSURE REDUCING MATTRESS ORDERED. FAMILY IS AT BED SIDE MRSA NARES , BACTOBAN ORDERED
[2022-06-09] MEDS: PANTOPRAZOLE 40 MG TABLET.DR PO SCH (07:30)
[2022-06-09] MEDS: FLUDROCORTISONE 0.1 MG TABLET PO SCH (09:09)
[2022-06-09] MEDS: CHOLECALCIFEROL 1,000 UNIT TABLET (VIT D3) PO SCH (09:09)
[2022-06-09] MEDS: MIDODRINE HCL (5MG) 5 MG TABLET PEG SCH ×3 (09:09→16:31)
[2022-06-09] MEDS: TIMOLOL 0.5% SOLN OPHTH 5 ML BOTTLE EACHEYE SCH (09:10)
[2022-06-09] MEDS: DORZOLAMIDE OPTH 2% 10 ML BOTTLE EACHEYE SCH (09:10)
[2022-06-09] MEDS: BRIMONIDINE TARTRATE OPHT SOLN 5 ML BOTTLE EACHEYE SCH (09:10)
[2022-06-09] MEDS: FAMOTIDINE (20 MG) 20 MG TABLET PO SCH (09:10)
[2022-06-09] MEDS: FINASTERIDE (5 MG) 5 MG TABLET PO SCH (09:10)
[2022-06-09] MEDS: PROSOURCE / PROSTAT (PYXIS) 30 ML UDC GT SCH (09:13)
[2022-06-09] MEDS: FERROUS SULFATE (325 MG) 325 MG/TAB TABLET PO SCH (09:13)
[2022-06-09 10:38] LABS: ABG BASE EXCESS 2.2 mmol/L; ABG OXYGEN SATURATION 96.7 % (92.0-98.5); ABG PCO2 39.5 mmHg (35.0-45.0); ABG PH 7.443 (7.350-7.450); ABG PO2 90.1 mmHg (75.0-100.0); COHb 0.2 % (0.5-1.5); O2Hb 96.5 % (94.0-97.0); SITE, ABG Left Brachial; VENT MODE, BG SIMV 4 PSV 15 +5; VT, ABG 450 mL
--- NOTE | 2022-06-09 10:45 | NUR ---
WOUND CARE: LEFT HEEL ULCER NOTED, PRESENT ON ADMISSION. DR PHOENIX CALLED FOR DPM CONSULT. FIRST STEP LOW AIRLOSS MATTRESS IS ON ORDER. DISCUSSED SKIN PROTECTION WITH NURSING STAFF. IN AGREEMENT WITH PLAN OF CARE. Addendum: 06/09/22 at 1112 by RADHA SCHROEDER WNDNU SACRAL INTACT DEEP TISSUE INJURY NOTED WELL LEFT GROIN/PERINEAL OPEN AREA (SURGICAL SITE) WITH DRAIN NOTED. SURGICAL CONSULT CALLED TO DR OLSEN. IN AGREEMENT WITH PLAN OF CARE.
[2022-06-09] MEDS ORDERED: Sodium Chloride 154 MEQ in IV 10% DEXTROSE 1,000 ML IV ONE (11:00)
[2022-06-09 11:43] LABS: D-DIMER 6.93 mg/L(FEU (0.17-0.50)
[2022-06-09] MEDS: INSULIN REGULAR, HUMAN 100 UNIT/ML 3 ML VIAL SQ PRN ×2 (12:48→21:12)
[2022-06-09 13:26] LABS: BASOPHILS % (MANUAL) 0 % (0.0-2.0); EOSINOPHILS % (MANUAL) 4 % (0-4); LYMPHOCYTES % (MANUAL) 16 % (16-48); MONOCYTES % (MANUAL) 9 % (0-11.0); NEUTROPHILS % (MANUAL) 71 (42-76)
--- NOTE | 2022-06-09 20:00 | NUR ---
Received patient awake non interactive.Orally intubated on full vent support.No acute distress noted.SR.Normotensive.Patient with ongoing ogt feeding Nepro.Positive placement.No residual oted.Maintain aspiration precaution with HOB elevated.Colostomy active.Anuric on HD.Turned and repositioned to comfort.Continue monitoring.
[2022-06-09] MEDS ORDERED: NEPRO 1,000 ML BOTTLE GT PRN (20:54)
[2022-06-09] MEDS: MUPIROCIN OINT 2% 22 GM TUBE NS SCH (21:11)
[2022-06-09] MEDS: SIMVASTATIN 10 MG TABLET PO SCH (21:20)
[2022-06-09] MEDS: LATANOPROST EYE DROP 0.005% 2.5 ML BOTTLE EACHEYE SCH (21:20)
[2022-06-09] MEDS: TAMSULOSIN 0.4 MG CAP.SR.24H PO SCH (21:21)
[2022-06-09] MEDS: DAKINS QUARTER STRENGTH (0.125%) 480 ML BOTTLE TOP SCH (21:30)
[2022-06-10] VITALS (43 sets, daily range): BP systolic 80–160; BP diastolic 44–87
[2022-06-10] MEDS: BLOOD SUGAR DIAGNOSTIC 1 EACH STRIP IN SCH ×6 (01:30→21:28)
[2022-06-10] MEDS: INSULIN REGULAR, HUMAN 100 UNIT/ML 3 ML VIAL SQ PRN (01:31)
[2022-06-10 05:02] LABS: BASOPHILS % (AUTO) 0.4 % (0.0-2.0); HEMATOCRIT 26 % (39-51); HEMOGLOBIN 8.1 g/dL (13.5-17.5); LYMPHOCYTES # (AUTO) 0.8 K/uL (0.8-4.8); LYMPHOCYTES % (AUTO) 15.6 % (20.0-44.0); MEAN CORPUSCULAR HGB CONC 32 g/dl (31.0-36.0); MEAN CORPUSCULAR VOLUME 92 fL (80-96); MONOCYTES # (AUTO) 0.4 K/uL (0.1-1.30); MONOCYTES % (AUTO) 7.3 % (2.0-12.0); NEUTROPHILS # (AUTO) 3.6 K/uL (1.8-8.9); NEUTROPHILS % (AUTO) 69.7 % (43.0-81.0); WHITE BLOOD COUNT (AUTO) 5.2 K/uL (4.3-11.0)
[2022-06-10 05:14] LABS: CALCIUM, SERUM 8.9 mg/dL (8.5-10.1); CREATININE 3.4 mg/dL (0.6-1.3); PLATELET COUNT (AUTO) 39 K/uL (150-450); POTASSIUM 3.9 mmol/L (3.5-5.1)
[2022-06-10] MEDS: PIPERACILLIN /TAZOBACTAM 3.375 G in IV D5W 50 ML IV SCH ×4 (05:19→23:33)
[2022-06-10 05:40] LABS: D-DIMER 6.18 mg/L(FEU (0.17-0.50)
[2022-06-10] MEDS: NOREPINEPHRINE 32 MG in IV NS 0.9% 218 ML IV PRN (05:49)
--- NOTE | 2022-06-10 05:50 | NUR ---
Patient hemodynamically unstable/Levophed gtt restarted at 0.1 mcg and will titrate accordingly. FSBS 61 apple juice given via ogt.Tube feeding infusing well .Continue to monitor.Turned and repositioned
--- NOTE | 2022-06-10 07:35 | NUR ---
ICU/RN PT IS INTUBATED ON THE VENT AC MODE.FIO2-24%.SAT O2-100%.NOT SEDATED.LEFT UPPER ARM MID LINE.LEVOPHED DRIP OFF.V/S STABLE ,AFEBRILE.NO PAIN REPORTED AT THIS TIME.OG TUBE INFUSING WITH FEEDING.NO RESIDUAL ANURIC ,ON HD RIGHT UPPER ARM IV FISTULA.HAS COLOSTOMY DRAINING WITH GREEN LIQUID STOOL.SUCTION PROVIDED.REPOSITION FOR COMFORT.LABS REVIEW.
[2022-06-10] MEDS ORDERED: DC PROPOFOL WHEN EXTUBATED XX PRN (08:00)
[2022-06-10] MEDS: PANTOPRAZOLE 40 MG TABLET.DR PO SCH (08:32)
[2022-06-10] MEDS: FINASTERIDE (5 MG) 5 MG TABLET PO SCH (08:32)
[2022-06-10] MEDS: FLUDROCORTISONE 0.1 MG TABLET PO SCH (08:33)
[2022-06-10] MEDS: FERROUS SULFATE (325 MG) 325 MG/TAB TABLET PO SCH (08:33)
[2022-06-10] MEDS: CHOLECALCIFEROL 1,000 UNIT TABLET (VIT D3) PO SCH (08:33)
[2022-06-10] MEDS: MIDODRINE HCL (5MG) 5 MG TABLET PEG SCH ×3 (08:33→17:15)
[2022-06-10] MEDS: FAMOTIDINE (20 MG) 20 MG TABLET PO SCH (08:33)
[2022-06-10] MEDS: TIMOLOL 0.5% SOLN OPHTH 5 ML BOTTLE EACHEYE SCH (08:34)
[2022-06-10] MEDS: DORZOLAMIDE OPTH 2% 10 ML BOTTLE EACHEYE SCH (08:34)
[2022-06-10] MEDS: BRIMONIDINE TARTRATE OPHT SOLN 5 ML BOTTLE EACHEYE SCH (08:34)
[2022-06-10] MEDS: PROSOURCE / PROSTAT (PYXIS) 30 ML UDC GT SCH (08:35)
[2022-06-10] MEDS: MUPIROCIN OINT 2% 22 GM TUBE NS SCH ×2 (08:36→21:29)
[2022-06-10] MEDS: DAKINS QUARTER STRENGTH (0.125%) 480 ML BOTTLE TOP SCH (08:37)
--- NOTE | 2022-06-10 09:00 | NUR ---
ICU/RN PT IS EXTUBATED .PLACED ON 3L N/C SAT O2-99%.OG TUBE REMOVED.PT IS NPO SWALLOW EVALUATION ORDERED.HD NURSE AT BEDSIDE.HEMODIALYSIS STARTED.
[2022-06-10] MEDS: ALBUMIN 25% 25 GM in PREMIX 1 EA IV PRN (09:32)
[2022-06-10 09:43] LABS: ABG BASE EXCESS -1.4 mmol/L; ABG OXYGEN SATURATION 93.4 % (92.0-98.5); ABG PH 7.395 (7.350-7.450); ABG PO2 71.1 mmHg (75.0-100.0); AaDO2 53.6 mmHg; COHb 0.2 % (0.5-1.5); MetHb 0.3 % (0.0-1.5); O2Hb 92.9 % (94.0-97.0); SITE, ABG Left Femoral; VENT MODE, BG SIMV 4 PS 10 +5 24%
[2022-06-10 12:06] LABS: BASOPHILS % (MANUAL) 0 % (0.0-2.0); EOSINOPHILS % (MANUAL) 4 % (0-4); LYMPHOCYTES % (MANUAL) 16 % (16-48); MONOCYTES % (MANUAL) 9 % (0-11.0); NEUTROPHILS % (MANUAL) 71 (42-76)
--- NOTE | 2022-06-10 12:30 | NUR ---
ICU/RN HD IS OVER .1 L OUTPUT. PT HAS HD FISTULA BLEEDING .DR KIRSTY Dubois.AT BED SIDE . FAMILY AT BED SIDE.
[2022-06-10] MEDS ORDERED: EPOETIN ALFA (10,000 UNIT) 10,000 UNIT/ML VIAL SQ ONE (13:00)
[2022-06-10] MEDS: THERAHONEY GEL 1.5 OZ TUBE TP SCH (13:25)
--- NOTE | 2022-06-10 15:26 | NUR ---
ICU/RN PM CARE PROVIDED.WOUND DRESSING DONE ORDERED.REPOSITION FOR COMFORT .FAMILY AT BEDSIDE.
[2022-06-10] MEDS: LATANOPROST EYE DROP 0.005% 2.5 ML BOTTLE EACHEYE SCH (21:29)
[2022-06-10] MEDS: SIMVASTATIN 10 MG TABLET PO SCH (21:31)
[2022-06-10] MEDS: TAMSULOSIN 0.4 MG CAP.SR.24H PO SCH (21:31)
[2022-06-11] VITALS (35 sets, daily range): BP systolic 62–185; BP diastolic 22–63
[2022-06-11] MEDS: BLOOD SUGAR DIAGNOSTIC 1 EACH STRIP IN SCH ×6 (00:55→22:18)
[2022-06-11] MEDS: *INSULIN REGULAR(HUMULIN R)HUM 100 UNIT/ML VIAL SQ PRN ×2 (00:57→12:23)
[2022-06-11 05:29] LABS: BASOPHILS % (AUTO) 0.5 % (0.0-2.0); EOSINOPHILS % (AUTO) 10.4 % (0.0-6.0); HEMATOCRIT 25 % (39-51); HEMOGLOBIN 7.7 g/dL (13.5-17.5); LYMPHOCYTES # (AUTO) 0.6 K/uL (0.8-4.8); LYMPHOCYTES % (AUTO) 15.9 % (20.0-44.0); MEAN CORPUSCULAR HGB CONC 32 g/dl (31.0-36.0); MEAN CORPUSCULAR VOLUME 93 fL (80-96); MONOCYTES # (AUTO) 0.3 K/uL (0.1-1.30); MONOCYTES % (AUTO) 8.5 % (2.0-12.0); NEUTROPHILS # (AUTO) 2.5 K/uL (1.8-8.9); NEUTROPHILS % (AUTO) 64.7 % (43.0-81.0); RED BLOOD CELL COUNT(AUTO) 2.65 MIL/uL (4.5-6.0); WHITE BLOOD COUNT (AUTO) 3.9 K/uL (4.3-11.0)
[2022-06-11 05:32] LABS: CALCIUM, SERUM 8.4 mg/dL (8.5-10.1); CREATININE 2.6 mg/dL (0.6-1.3); POTASSIUM 3.7 mmol/L (3.5-5.1)
[2022-06-11 05:39] LABS: PLATELET COUNT (AUTO) 32 K/uL (150-450)
[2022-06-11] MEDS: PIPERACILLIN /TAZOBACTAM 3.375 G in IV D5W 50 ML IV SCH (06:05)
--- NOTE | 2022-06-11 06:54 | NUR ---
ICU/DUST HANDLER CALLED THE DR BODY ARTIST ABOUT CRITICAL LAB VALUE PLT 32, DID NOT CALL BACK. CHARGE NURSE MADE AWARE OF THIS. IT HAS BEEN TRENDING DOWN . PT WAS SUPPOSED TO HAVE HAD 1 UNITE PRBC & PLT
--- NOTE | 2022-06-11 07:25 | NUR ---
RN NOTE PT RECEIVED IN BED WITH HOB >30 DEGREES. PT IS ON 3L NC O2 SAT 100% TOLERATING WELL WITH NO SIGNS OF LABORED BREATHING OR DISTRESS. PT IS A/OX1-2 AT THIS TIME WITH PERIODS OF CONFUSION; GHANAIAN SPEAKING ONLY; OPENS EYES AND TRACKS TO SOUND, BUT IS BLIND AND HEARD OF HEARING. COLOSTOMY BAG IS IN PLACE AND PT IS ANURIC DUE TO HD. PT IS ON PUREE DIET. IV ACCESS L UA ML AND R UA HD FISTULA WITH NO FLUIDS INFUSING. BED IS LOCKED IN LOWEST POSITION X2 BED RAILS UP AND ALL HOSPITAL SAFETY MEASURES ARE IN PLACE. WILL CONTINUE TO MONITOR THIS SHIFT.
[2022-06-11] MEDS: PANTOPRAZOLE 40 MG TABLET.DR PO SCH (07:51)
[2022-06-11] MEDS: TIMOLOL 0.5% SOLN OPHTH 5 ML BOTTLE EACHEYE SCH (08:32)
[2022-06-11] MEDS: BRIMONIDINE TARTRATE OPHT SOLN 5 ML BOTTLE EACHEYE SCH (08:32)
[2022-06-11] MEDS: DORZOLAMIDE OPTH 2% 10 ML BOTTLE EACHEYE SCH (08:33)
[2022-06-11] MEDS: PROSOURCE / PROSTAT (PYXIS) 30 ML UDC GT SCH (08:34)
[2022-06-11] MEDS: MUPIROCIN OINT 2% 22 GM TUBE NS SCH ×2 (08:35→21:51)
[2022-06-11] MEDS: FERROUS SULFATE (325 MG) 325 MG/TAB TABLET PO SCH (08:35)
[2022-06-11] MEDS: CHOLECALCIFEROL 1,000 UNIT TABLET (VIT D3) PO SCH (08:35)
[2022-06-11] MEDS: FLUDROCORTISONE 0.1 MG TABLET PO SCH (08:36)
[2022-06-11] MEDS: FINASTERIDE (5 MG) 5 MG TABLET PO SCH (08:36)
[2022-06-11] MEDS: MIDODRINE HCL (5MG) 5 MG TABLET PEG SCH ×3 (08:37→16:57)
[2022-06-11] MEDS: THERAHONEY GEL 1.5 OZ TUBE TP SCH ×2 (08:38→16:54)
[2022-06-11] MEDS: DAKINS QUARTER STRENGTH (0.125%) 480 ML BOTTLE TOP SCH (08:41)
[2022-06-11] MEDS: INSULIN REGULAR, HUMAN 100 UNIT/ML 3 ML VIAL SQ PRN ×2 (08:51→17:27)
[2022-06-11] MEDS ORDERED: FLUDROCORTISONE 0.1 MG TABLET PO SCH (09:00)
--- NOTE | 2022-06-11 10:00 | NUR ---
RN NOTE: HOME MED SPOKE WITH PT'S DAUGHTER, WILFREDO AND ASKED HER ABOUT PTS HOME MED CYCLOSPORINE. SHE STATED THAT SHE WILL ASK HER MOTHER TO BRING IN MEDICATION
[2022-06-11] MEDS: ZOSYN IVPB 2.25 G in IV D5W 50ml IV SCH ×2 (12:01→17:28)
[2022-06-11 13:12] LABS: EOSINOPHILS % (MANUAL) 5 % (0-4); LYMPHOCYTES % (MANUAL) 17 % (16-48); MONOCYTES % (MANUAL) 8 % (0-11.0); NEUTROPHILS % (MANUAL) 70 (42-76)
[2022-06-11] MEDS ORDERED: INSULIN REGULAR, HUMAN 100 UNIT/ML 3 ML VIAL SQ PRN (15:00)
[2022-06-11] MEDS ORDERED: DEXTROSE 50%-WATER 50 ML DISP.SYRIN IV PRN (15:00)
[2022-06-11] MEDS ORDERED: BLOOD SUGAR DIAGNOSTIC 1 EACH STRIP IN SCH (17:00)
[2022-06-11] MEDS: IV NS 0.9% 250 ML IV PRN (18:52)
[2022-06-11] MEDS: NOREPINEPHRINE 32 MG in IV NS 0.9% 218 ML IV PRN (18:57)
--- NOTE | 2022-06-11 19:24 | NUR ---
RN CLOSING NOTE PT IN BED WITH HOB >30 DEGREES. PT IS ON 3L NC O2 SAT 100% TOLERATING WELL WITH NO SIGNS OF LABORED BREATHING OR DISTRESS. PT IS A/OX 2; MONTSERRATIAN SPEAKING ONLY; OPENS EYES AND TRACKS TO SOUND, BUT IS BLIND AND HEARD OF HEARING. COLOSTOMY BAG IS IN PLACE -700ML AND PT IS ANURIC. PT IS ON PUREE DIET AND THICKENER. IV ACCESS L UA ML INFUSING WITH LEVO @0.1MG/HR AND R UA HD FISTULA . BED IS LOCKED IN LOWEST POSITION X2 BED RAILS UP AND ALL HOSPITAL SAFETY MEASURES ARE IN PLACE. WILL ENDORSE TO UNEMPLOYMENT SPECIALIST NURSE FOR SUDHIR.
[2022-06-11] MEDS: SIMVASTATIN 10 MG TABLET PO SCH (21:47)
[2022-06-11] MEDS: LATANOPROST EYE DROP 0.005% 2.5 ML BOTTLE EACHEYE SCH (21:50)
[2022-06-11] MEDS: TAMSULOSIN 0.4 MG CAP.SR.24H PO SCH (21:53)
[2022-06-11] MEDS: DEXTROSE 50%-WATER 50 ML DISP.SYRIN IV PRN ×2 (22:05→22:19)
[2022-06-12] VITALS (91 sets, daily range): BP systolic 53–186; BP diastolic 12–113
[2022-06-12] MEDS: ZOSYN IVPB 2.25 G in IV D5W 50ml IV SCH ×4 (00:30→18:41)
--- NOTE | 2022-06-12 03:21 | NUR ---
PT HAS HAD SOME PERIODS WHERE HE WAS ST AND B/P HIGH 160S OVER 90. HE IS ON A LEVO DRIP 0.02. HE STABLE AND THEN HIS BLOOD GLUCOSE 46. IT WAS RETAKEN AND IT WAS 29. HE WAS GIVEN A BAG OF D10 TO INFUSE. HIS GLUCOSE AFTER TX WAS 100 THEN 15MIN AFTER THAT 101. HE IS STABLE VITALS WNL AT 0324. PT HAS A RT UPPER ARM FISTULA WRAPPED WITH KERLIX NO BLEEDING NOTED. HE IS ANURIC AND NOT RECEIVING DIALYSIS AT THIS TIME. HE HAS A COLOSTOMY ON THE RT SIDE OF LOWER ABDOMEN. HE IS ANIAK AND BLIND. HE IS ABLE TO MUBBLE HIS SPEECH ALTHOUGH PUERTO RICAN SPEAKING. HE HAS A RT BKA AND A LT FOOT AMPUTATED. HE TAKES HIS MEDS WITH PUDDING AND TOLERATES THAT GOOD. HE HAS A SACRAL DECUB SKIN APPEARS TO BE CLOSING A BARRIER WAS PUT ON AND CREAM. HE HAD A BATH AND RESTRAINTS ARE CURRENTLY OFF. WILL CONTINUE TO MONITOR HIS PROGRESS. KAILA LEE 7P-7A
[2022-06-12 05:03] LABS: BASOPHILS % (AUTO) 0.2 % (0.0-2.0); EOSINOPHILS % (AUTO) 7.9 % (0.0-6.0); HEMATOCRIT 30 % (39-51); HEMOGLOBIN 9.6 g/dL (13.5-17.5); LYMPHOCYTES # (AUTO) 0.7 K/uL (0.8-4.8); LYMPHOCYTES % (AUTO) 10.2 % (20.0-44.0); MEAN CORPUSCULAR HGB CONC 32 g/dl (31.0-36.0); MEAN CORPUSCULAR VOLUME 93 fL (80-96); MONOCYTES # (AUTO) 0.4 K/uL (0.1-1.30); MONOCYTES % (AUTO) 6.3 % (2.0-12.0); NEUTROPHILS # (AUTO) 4.8 K/uL (1.8-8.9); NEUTROPHILS % (AUTO) 75.4 % (43.0-81.0); RED BLOOD CELL COUNT(AUTO) 3.25 MIL/uL (4.5-6.0); WHITE BLOOD COUNT (AUTO) 6.4 K/uL (4.3-11.0)
[2022-06-12 05:07] LABS: PLATELET COUNT (AUTO) 42 K/uL (150-450)
[2022-06-12 05:09] LABS: CALCIUM, SERUM 8.6 mg/dL (8.5-10.1); CREATININE 3.3 mg/dL (0.6-1.3); POTASSIUM 4.5 mmol/L (3.5-5.1)
[2022-06-12 05:27] LABS: D-DIMER 4.77 mg/L(FEU (0.17-0.50)
--- NOTE | 2022-06-12 07:30 | NUR ---
RN OPENING NOTE PT RECEIVED IN BED WITH HOB >30 DEGREES. PT IS ON 3L NC O2 SAT 100% TOLERATING WELL WITH NO SIGNS OF LABORED BREATHING OR DISTRESS. PT IS A/OX 2; ALBANIAN SPEAKING ONLY; OPENS EYES AND TRACKS TO SOUND, BUT IS BLIND AND HEARD OF HEARING. COLOSTOMY BAG IS IN PLACE AND PT IS ANURIC. PT IS ON PUREE DIET AND THICKENER. IV ACCESS L UA ML INFUSING WITH LEVO @0.01MG/HR AT THIS TIME AND R UA HD FISTULA . BED IS LOCKED IN LOWEST POSITION X2 BED RAILS UP AND ALL HOSPITAL SAFETY MEASURES ARE IN PLACE. WILL CONTINUE TO MONITOR THIS SHIFT.
[2022-06-12] MEDS: BLOOD SUGAR DIAGNOSTIC 1 EACH STRIP IN SCH ×3 (09:52→18:41)
[2022-06-12] MEDS: PANTOPRAZOLE 40 MG TABLET.DR PO SCH (09:53)
[2022-06-12] MEDS: FAMOTIDINE (20 MG) 20 MG TABLET PO SCH (09:53)
[2022-06-12] MEDS: FERROUS SULFATE (325 MG) 325 MG/TAB TABLET PO SCH (09:53)
[2022-06-12] MEDS: INSULIN REGULAR, HUMAN 100 UNIT/ML 3 ML VIAL SQ PRN ×2 (09:53→13:22)
[2022-06-12] MEDS: FLUDROCORTISONE 0.1 MG TABLET PO SCH (09:53)
[2022-06-12] MEDS: FINASTERIDE (5 MG) 5 MG TABLET PO SCH (09:53)
[2022-06-12] MEDS: CHOLECALCIFEROL 1,000 UNIT TABLET (VIT D3) PO SCH (09:53)
[2022-06-12] MEDS: PROSOURCE / PROSTAT (PYXIS) 30 ML UDC GT SCH (09:56)
[2022-06-12] MEDS: MUPIROCIN OINT 2% 22 GM TUBE NS SCH ×2 (09:56→21:50)
[2022-06-12] MEDS: MIDODRINE HCL (5MG) 5 MG TABLET PEG SCH ×3 (09:56→18:57)
[2022-06-12] MEDS: THERAHONEY GEL 1.5 OZ TUBE TP SCH ×2 (09:59→18:42)
[2022-06-12] MEDS: BRIMONIDINE TARTRATE OPHT SOLN 5 ML BOTTLE EACHEYE SCH (09:59)
[2022-06-12] MEDS: DAKINS QUARTER STRENGTH (0.125%) 480 ML BOTTLE TOP SCH (09:59)
[2022-06-12] MEDS: TIMOLOL 0.5% SOLN OPHTH 5 ML BOTTLE EACHEYE SCH (09:59)
[2022-06-12] MEDS: DORZOLAMIDE OPTH 2% 10 ML BOTTLE EACHEYE SCH (09:59)
--- NOTE | 2022-06-12 13:00 | NUR ---
RN NOTE: PLATELET TRANSFUSION 1 UNIT TRANSFUSED COMPLETE WITHOUT COMPLICATION
[2022-06-12 13:22] LABS: BASOPHILS % (MANUAL) 0 % (0.0-2.0); EOSINOPHILS % (MANUAL) 5 % (0-4); LYMPHOCYTES % (MANUAL) 12 % (16-48); MONOCYTES % (MANUAL) 7 % (0-11.0); NEUTROPHILS % (MANUAL) 76 (42-76)
--- NOTE | 2022-06-12 16:30 | NUR ---
RN NOTE: TRANSFER TO JESUS ANDERSON PT REMAINS IN ICU AND REPORT GIVEN TO JESUS ANDERSON. PT STABLE AT THIS TIME.
[2022-06-12] MEDS: NOREPINEPHRINE 32 MG in IV NS 0.9% 218 ML IV PRN (18:05)
[2022-06-12] MEDS: POLYVINYL ALCOHOL 15 ML BOTTLE EACHEYE SCH (18:56)
[2022-06-12] MEDS ORDERED: VANCOMYCIN HCL 0.75 GM in IV D5W 250 ML IV ONE (20:30)
[2022-06-12] MEDS ORDERED: MEROPENEM 500 MG in IV NS 0.9% 50 ML IV ONE (20:30)
[2022-06-12] MEDS: LATANOPROST EYE DROP 0.005% 2.5 ML BOTTLE EACHEYE SCH (21:51)
[2022-06-12] MEDS: SIMVASTATIN 10 MG TABLET PO SCH (21:54)
[2022-06-12] MEDS: TAMSULOSIN 0.4 MG CAP.SR.24H PO SCH (21:54)
[2022-06-12] MEDS: IV NS 0.9% 250 ML IV PRN (22:04)
[2022-06-12] MEDS ORDERED: MEROPENEM 500 MG VIAL IV ONE (22:51)
[2022-06-13] VITALS (36 sets, daily range): BP systolic 80–169; BP diastolic 35–107
[2022-06-13] MEDS: BLOOD SUGAR DIAGNOSTIC 1 EACH STRIP IN SCH ×5 (01:19→23:13)
--- NOTE | 2022-06-13 03:28 | NUR ---
design engineer agricultural equipment. am care given. remaining same oxygen tolerated well. sat 98%. no acute distress noted. remote sensing advisor showing nsr. iv lt upper artm mid line . levophed 0.02mcg/kg/min, hob elevated. turn and reposition q2h. will continue to monitor vitals.
[2022-06-13 05:21] LABS: BASOPHILS % (AUTO) 0.4 % (0.0-2.0); EOSINOPHILS % (AUTO) 7.4 % (0.0-6.0); HEMATOCRIT 24 % (39-51); HEMOGLOBIN 7.9 g/dL (13.5-17.5); LYMPHOCYTES # (AUTO) 1.1 K/uL (0.8-4.8); LYMPHOCYTES % (AUTO) 15.3 % (20.0-44.0); MEAN CORPUSCULAR HGB CONC 33 g/dl (31.0-36.0); MEAN CORPUSCULAR VOLUME 92 fL (80-96); MONOCYTES # (AUTO) 0.8 K/uL (0.1-1.30); MONOCYTES % (AUTO) 10.4 % (2.0-12.0); NEUTROPHILS # (AUTO) 4.8 K/uL (1.8-8.9); NEUTROPHILS % (AUTO) 66.5 % (43.0-81.0); PLATELET COUNT (AUTO) 85 K/uL (150-450); RED BLOOD CELL COUNT(AUTO) 2.64 MIL/uL (4.5-6.0); WHITE BLOOD COUNT (AUTO) 7.3 K/uL (4.3-11.0)
[2022-06-13 05:35] LABS: CALCIUM, SERUM 8.6 mg/dL (8.5-10.1); POTASSIUM 4.5 mmol/L (3.5-5.1)
[2022-06-13 06:10] LABS: D-DIMER 4.95 mg/L(FEU (0.17-0.50)
[2022-06-13] MEDS ORDERED: VANCOMYCIN POST DIALYSIS 500MG IV PRN ×2 (07:00)
[2022-06-13 08:07] LABS: BAND % (MANUAL) 2 % (0.0-5.0); EOSINOPHILS % (MANUAL) 6 % (0-4); LYMPHOCYTES % (MANUAL) 14 % (16-48); MONOCYTES % (MANUAL) 10 % (0-11.0); NEUTROPHILS % (MANUAL) 68 (42-76)
[2022-06-13] MEDS: DORZOLAMIDE OPTH 2% 10 ML BOTTLE EACHEYE SCH (08:54)
[2022-06-13] MEDS: TIMOLOL 0.5% SOLN OPHTH 5 ML BOTTLE EACHEYE SCH (08:54)
[2022-06-13] MEDS: POLYVINYL ALCOHOL 15 ML BOTTLE EACHEYE SCH ×2 (08:54→17:45)
[2022-06-13] MEDS: BRIMONIDINE TARTRATE OPHT SOLN 5 ML BOTTLE EACHEYE SCH (08:54)
[2022-06-13] MEDS: MIDODRINE HCL (5MG) 5 MG TABLET PEG SCH ×3 (08:55→17:44)
[2022-06-13] MEDS: FERROUS SULFATE (325 MG) 325 MG/TAB TABLET PO SCH (08:55)
[2022-06-13] MEDS: FLUDROCORTISONE 0.1 MG TABLET PO SCH (08:55)
[2022-06-13] MEDS: CHOLECALCIFEROL 1,000 UNIT TABLET (VIT D3) PO SCH (08:55)
[2022-06-13] MEDS: MEROPENEM 500 MG in IV NS 0.9% 50 ML IV SCH ×3 (09:04→21:23)
[2022-06-13] MEDS: PANTOPRAZOLE 40 MG TABLET.DR PO SCH (09:24)
[2022-06-13] MEDS: PROSOURCE / PROSTAT (PYXIS) 30 ML UDC GT SCH (09:25)
[2022-06-13] MEDS: FINASTERIDE (5 MG) 5 MG TABLET PO SCH (09:25)
[2022-06-13] MEDS: MUPIROCIN OINT 2% 22 GM TUBE NS SCH ×2 (09:25→21:23)
[2022-06-13] MEDS: DAKINS QUARTER STRENGTH (0.125%) 480 ML BOTTLE TOP SCH (09:39)
[2022-06-13] MEDS: EPOETIN ALFA-EPBX 10,000 UNIT/ML VIAL SQ SCH (09:39)
[2022-06-13] MEDS: THERAHONEY GEL 1.5 OZ TUBE TP SCH ×2 (09:40→17:00)
[2022-06-13] MEDS ORDERED: VANCOMYCIN 1 GM in IV D5W 250 ML IV PRN (11:00)
[2022-06-13] MEDS ORDERED: CELLULOSE,OXIDIZED 1 PKT EACH MC ONE ×2 (17:30→18:30)
--- NOTE | 2022-06-13 17:31 | NUR ---
02 NC sat 100%. no resp distress noted. bradycardia since 0900. levo was started at 1000 due to low map and low hr. new midline inserted on darrell. meals consumed 100%. ST evaled pt's swallowing ability and pt passed. dialysis today 2 li output. pt constantly bleeding at dialysis site. pressure held by dialysis nurse. Surgicell applied. Dr notified of bleeding siltation and awaiting response. .
--- NOTE | 2022-06-13 17:37 | NUR ---
pt on face mask 10li with 100% o2 sat. 2 large bms(diarrhea). pt obtunded. tried to insert ng tube but failed. copious amounts of mucous requiring constant suctioning. restraints still on. po meds held.
[2022-06-13] MEDS ORDERED: PHYTONADIONE INJ 10 MG/1 ML AMPUL SQ ONE (18:00)
[2022-06-13] MEDS: PHYTONADIONE INJ 10 MG/1 ML AMPUL SQ SCH (18:11)
--- NOTE | 2022-06-13 19:30 | NUR ---
MANAGER IMPLEMENTATION OPENING NOTE RECEIVED PT IN BED WITH FAMILY MEMBER AT BEDSIDE. PT IS ON 3L NC O2 SAT 100% TOLERATING WELL WITH NO SIGNS OF LABORED BREATHING OR DISTRESS. PT IS A/OX 1; SWISS SPEAKING ONLY; OPENS EYES AND TRACKS TO SOUND, BUT IS BLIND AND HEARD OF HEARING. COLOSTOMY BAG IS IN PLACE AND PT IS ANURIC. PT IS ON PUREED DIET AND THICKENER. IV ACCESS L UA ML INFUSING WITH LEVO @ 0.14MCG/MIN AT THIS TIME AND RENÉ HD FISTULA NOTED WITH ACTIVE BLEEDING, HD NURSE AT BEDSIDE GIVING PRESSURE ON SITE. MD AWARE OF THE BLEEDING. PT RECEIVED WITH B SOFT WRIST RESTRAINTS, CHECK Q2H FOR CIRCULATION, BED IS LOCKED IN LOWEST POSITION X2 BED RAILS UP AND ALL HOSPITAL SAFETY MEASURES ARE IN PLACE. WILL CONTINUE TO MONITOR THROUGHOUT THE SHIFT.
[2022-06-13] MEDS ORDERED: TRANEXAMIC ACID 1,000 MG/10 ML VIAL TOP PRN (20:00)
[2022-06-13] MEDS ORDERED: TRANEXAMIC ACID 1,000 MG in IV NS 0.9% 100 ML IV ONE (20:00)
[2022-06-13 20:14] LABS: BASOPHILS # (AUTO) 0.1 K/uL (0.0-0.2); BASOPHILS % (AUTO) 0.5 % (0.0-2.0); EOSINOPHILS % (AUTO) 5.7 % (0.0-6.0); HEMATOCRIT 31 % (39-51); HEMOGLOBIN 9.8 g/dL (13.5-17.5); LYMPHOCYTES # (AUTO) 1.5 K/uL (0.8-4.8); LYMPHOCYTES % (AUTO) 15.4 % (20.0-44.0); MEAN CORPUSCULAR HGB CONC 32 g/dl (31.0-36.0); MEAN CORPUSCULAR VOLUME 93 fL (80-96); MONOCYTES % (AUTO) 10.3 % (2.0-12.0); NEUTROPHILS # (AUTO) 6.5 K/uL (1.8-8.9); NEUTROPHILS % (AUTO) 68.1 % (43.0-81.0); PLATELET COUNT (AUTO) 94 K/uL (150-450); RED BLOOD CELL COUNT(AUTO) 3.32 MIL/uL (4.5-6.0); WHITE BLOOD COUNT (AUTO) 9.5 K/uL (4.3-11.0)
[2022-06-13] MEDS: LATANOPROST EYE DROP 0.005% 2.5 ML BOTTLE EACHEYE SCH (21:23)
[2022-06-13] MEDS: TAMSULOSIN 0.4 MG CAP.SR.24H PO SCH (21:23)
[2022-06-13] MEDS: SIMVASTATIN 10 MG TABLET PO SCH (21:23)
[2022-06-13 22:01] LABS: BAND % (MANUAL) 1 % (0.0-5.0); EOSINOPHILS % (MANUAL) 8 % (0-4); LYMPHOCYTES % (MANUAL) 18 % (16-48); MONOCYTES % (MANUAL) 9 % (0-11.0); NEUTROPHILS % (MANUAL) 64 (42-76)
--- NOTE | 2022-06-13 23:10 | NUR ---
RN NOTE 1 BAG FFP TRANSFUSED WITH NO TRANSFUSION REACTION NOTED. V/S TAKEN AND RECORDED, PT TOLERATED WELL. BS CHECKED AT 238 MG/DL, NO INSULIN COVERAGE PER MD. CN MADE AWARE. WILL CONT TO MONITOR.
[2022-06-14] VITALS (38 sets, daily range): BP systolic 83–189; BP diastolic 21–77
--- NOTE | 2022-06-14 02:02 | NUR ---
RN NOTE 2nd BAG FFP TRANSFUSED WITH NO TRANSFUSION REACTION NOTED. V/S TAKEN AND RECORDED, PT TOLERATED WELL.
[2022-06-14 04:09] LABS: BASOPHILS % (AUTO) 0.3 % (0.0-2.0); EOSINOPHILS % (AUTO) 5.2 % (0.0-6.0); HEMATOCRIT 22 % (39-51); LYMPHOCYTES # (AUTO) 0.6 K/uL (0.8-4.8); LYMPHOCYTES % (AUTO) 19.2 % (20.0-44.0); MEAN CORPUSCULAR HGB CONC 32 g/dl (31.0-36.0); MEAN CORPUSCULAR VOLUME 92 fL (80-96); MONOCYTES # (AUTO) 0.2 K/uL (0.1-1.30); MONOCYTES % (AUTO) 7.3 % (2.0-12.0); PLATELET COUNT (AUTO) 52 K/uL (150-450); RED BLOOD CELL COUNT(AUTO) 2.36 MIL/uL (4.5-6.0); WHITE BLOOD COUNT (AUTO) 2.9 K/uL (4.3-11.0)
[2022-06-14 04:30] LABS: D-DIMER 2.97 mg/L(FEU (0.17-0.50)
[2022-06-14] MEDS: BLOOD SUGAR DIAGNOSTIC 1 EACH STRIP IN SCH ×5 (05:33→21:39)
--- NOTE | 2022-06-14 06:35 | NUR ---
SCUBA DIVING TEACHER CLOSING NOTE PT REMAINS IN BED, PT IS ON 3L NC O2 SAT 100% TOLERATING WELL WITH NO SIGNS OF LABORED BREATHING OR DISTRESS. PT IS A/OX 1; PARAGUAYAN SPEAKING ONLY; OPENS EYES AND TRACKS TO SOUND, BUT IS BLIND AND HEARD OF HEARING. COLOSTOMY BAG IS IN PLACE AND PT IS ANURIC. PT IS ON PUREED DIET AND THICKENER. IV ACCESS SARAH ML AND L ARM #22G, INTACT AND PATENT, WITH RENÉ HD FISTULA DRESSING C/D/I. PT RECEIVED WITH B SOFT WRIST RESTRAINTS, CHECK Q2H FOR CIRCULATION, ALL HOSPITAL SAFETY MEASURES ARE IN PLACE. BED IS LOCKED AND IN LOWEST POSITION X2 BED RAILS UP, ALL DUE MEDS GIVEN, KEPT DRY AND CLEAN, S/P 2 BAG FFP AND 1 BAG PLATELET TRANSFUSION, WILL ENDORSE TO AM SHIFT NURSE FOR CONTINUITY OF CARE.
--- NOTE | 2022-06-14 07:35 | NUR ---
ICU/RN PT IS ON 2L N/C SAT O2-100%.V/S STABLE,AFEBRILE.NO PAIN REPORTED AT THIS TIME.PT IS AWAKE,ALERT,BELARUSIAN SPEAKING. ANURIC ON HD .RIGHT UPPER ARM FISTULA COVERED WITH DRESSING NO S/S OF BLEEDING. LEFT UPPER ARM MID LINE. COLOSTOMY BAG DRAINING WITH YELLOW STOOL.PT HAS RIGHT BKA AND LEFT FOOT AMPUTATION .MULTIPLY BRUISES ALL OVER THE BODY .LABS REVIEW. AWARE.
[2022-06-14] MEDS: PANTOPRAZOLE 40 MG TABLET.DR PO SCH (08:25)
[2022-06-14] MEDS: CHOLECALCIFEROL 1,000 UNIT TABLET (VIT D3) PO SCH (08:25)
[2022-06-14] MEDS: FAMOTIDINE (20 MG) 20 MG TABLET PO SCH (08:25)
[2022-06-14] MEDS: MEROPENEM 500 MG in IV NS 0.9% 50 ML IV SCH (08:27)
[2022-06-14] MEDS: FERROUS SULFATE (325 MG) 325 MG/TAB TABLET PO SCH (08:27)
[2022-06-14] MEDS: FLUDROCORTISONE 0.1 MG TABLET PO SCH (08:27)
[2022-06-14] MEDS: FINASTERIDE (5 MG) 5 MG TABLET PO SCH (08:27)
[2022-06-14] MEDS: MIDODRINE HCL (5MG) 5 MG TABLET PEG SCH ×3 (08:27→16:25)
[2022-06-14] MEDS: POLYVINYL ALCOHOL 15 ML BOTTLE EACHEYE SCH ×2 (08:28→16:26)
[2022-06-14] MEDS: TIMOLOL 0.5% SOLN OPHTH 5 ML BOTTLE EACHEYE SCH (08:29)
[2022-06-14] MEDS: BRIMONIDINE TARTRATE OPHT SOLN 5 ML BOTTLE EACHEYE SCH (08:29)
[2022-06-14] MEDS: DORZOLAMIDE OPTH 2% 10 ML BOTTLE EACHEYE SCH (08:30)
[2022-06-14] MEDS: MUPIROCIN OINT 2% 22 GM TUBE NS SCH ×2 (08:31→21:00)
[2022-06-14] MEDS: THERAHONEY GEL 1.5 OZ TUBE TP SCH ×2 (08:31→16:26)
[2022-06-14] MEDS: DAKINS QUARTER STRENGTH (0.125%) 480 ML BOTTLE TOP SCH (08:32)
[2022-06-14] MEDS: PROSOURCE / PROSTAT (PYXIS) 30 ML UDC GT SCH (08:33)
--- NOTE | 2022-06-14 09:00 | NUR ---
ICU/RN DUE MEDS ARE GIVEN ORDERED CRUSH AND MIXED WITH APPLE SAUCE
[2022-06-14 09:40] LABS: BAND % (MANUAL) 5 % (0.0-5.0); EOSINOPHILS % (MANUAL) 8 % (0-4); LYMPHOCYTES % (MANUAL) 22 % (16-48); MONOCYTES % (MANUAL) 4 % (0-11.0); NEUTROPHILS % (MANUAL) 61 (42-76)
[2022-06-14 11:59] LABS: BASOPHILS % (AUTO) 0.6 % (0.0-2.0); EOSINOPHILS % (AUTO) 6.8 % (0.0-6.0); LYMPHOCYTES # (AUTO) 0.7 K/uL (0.8-4.8); MEAN CORPUSCULAR HGB CONC 32 g/dl (31.0-36.0); MEAN CORPUSCULAR VOLUME 92 fL (80-96); MONOCYTES # (AUTO) 0.4 K/uL (0.1-1.30); MONOCYTES % (AUTO) 11.4 % (2.0-12.0); NEUTROPHILS # (AUTO) 1.9 K/uL (1.8-8.9); NEUTROPHILS % (AUTO) 58.2 % (43.0-81.0); PLATELET COUNT (AUTO) 51 K/uL (150-450); RED BLOOD CELL COUNT(AUTO) 2.04 MIL/uL (4.5-6.0); WHITE BLOOD COUNT (AUTO) 3.2 K/uL (4.3-11.0)
[2022-06-14 12:10] LABS: HEMATOCRIT 19 % (39-51)
[2022-06-14 12:12] LABS: CALCIUM, SERUM 8.5 mg/dL (8.5-10.1); CREATININE 3.7 mg/dL (0.6-1.3)
[2022-06-14] MEDS ORDERED: DEXTROSE 50%-WATER 50 ML DISP.SYRIN IV PRN (13:00)
[2022-06-14] MEDS: INSULIN REGULAR, HUMAN 100 UNIT/ML 3 ML VIAL SQ PRN ×2 (13:19→17:47)
[2022-06-14 13:29] LABS: BAND % (MANUAL) 4 % (0.0-5.0); EOSINOPHILS % (MANUAL) 4 % (0-4); LYMPHOCYTES % (MANUAL) 23 % (16-48); MONOCYTES % (MANUAL) 9 % (0-11.0); NEUTROPHILS % (MANUAL) 60 (42-76)
--- NOTE | 2022-06-14 15:10 | NUR ---
ICU/RN H/H 6.0/19. 1 UNIT PRBC ORDERED AND STARTED. STILL WAITING FOR PLATELETS FROM [facility].
--- NOTE | 2022-06-14 18:00 | NUR ---
ICU/RN PM CARE PROVIDED.WOUND DRESSING DONE ORDERED.DUE MEDS ARE GIVEN ORDERED.1 UNIT PRBC GIVEN NO S/S OF REACTION NOTED. V/S STABLE AFEBRILE. FAMILY AT BEDSIDE.
--- NOTE | 2022-06-14 20:00 | NUR ---
Received patient awake alert oriented x1.VS stable.SB low 50's.Respiration even and unlabored. O2 2LNC on saturation 100%.Denies pain or any discomfort.RENÉ AVS with dressing intact.No active bleeding noted.Colostomy active.IV NS at TKO infusing to SARAH ML site intact.Turned and repositioned.Continue monitoring.
[2022-06-14] MEDS: LATANOPROST EYE DROP 0.005% 2.5 ML BOTTLE EACHEYE SCH (21:23)
[2022-06-14] MEDS: SIMVASTATIN 10 MG TABLET PO SCH (21:24)
[2022-06-14] MEDS: TAMSULOSIN 0.4 MG CAP.SR.24H PO SCH (21:24)
[2022-06-15] VITALS (25 sets, daily range): BP systolic 84–133; BP diastolic 27–73
--- NOTE | 2022-06-15 | NUR ---
Patient hypothermic Temp 95.9 kept warm with Jesse Hugger.
[2022-06-15 05:24] LABS: BASOPHILS % (AUTO) 0.5 % (0.0-2.0); HEMATOCRIT 26 % (39-51); HEMOGLOBIN 8.4 g/dL (13.5-17.5); LYMPHOCYTES % (AUTO) 24.7 % (20.0-44.0); MEAN CORPUSCULAR HGB CONC 33 g/dl (31.0-36.0); MEAN CORPUSCULAR VOLUME 91 fL (80-96); MONOCYTES # (AUTO) 0.4 K/uL (0.1-1.30); MONOCYTES % (AUTO) 10.6 % (2.0-12.0); NEUTROPHILS # (AUTO) 2.2 K/uL (1.8-8.9); NEUTROPHILS % (AUTO) 55.2 % (43.0-81.0); WHITE BLOOD COUNT (AUTO) 3.9 K/uL (4.3-11.0)
[2022-06-15 05:32] LABS: D-DIMER 1.24 mg/L(FEU (0.17-0.50)
[2022-06-15 05:34] LABS: PLATELET COUNT (AUTO) 61 K/uL (150-450)
[2022-06-15 05:40] LABS: CALCIUM, SERUM 8.6 mg/dL (8.5-10.1); CREATININE 3.9 mg/dL (0.6-1.3); POTASSIUM 4.3 mmol/L (3.5-5.1)
--- NOTE | 2022-06-15 06:30 | NUR ---
Patient resting in no acute distress.VS stable.AM care done.Latest platelet 61.Per Caleb in blood bank Platelet one unit still not available.Will endorse to day shift for SUDHIR.
--- NOTE | 2022-06-15 06:48 | NUR ---
RN in OR called for patient.Made aware consent not signed.Patient daughter wants to speak to MD first.Pre -op check list initiated as requested by [employer] OFFICE MANAGER.
[2022-06-15] MEDS ORDERED: HEPARIN SODIUM, PORCINE 1,000 UNIT/ML VIAL ONE (06:57)
[2022-06-15] MEDS ORDERED: LIDOCAINE HCL/MPF 1% 30 ML VIAL IJ ONE (06:57)
[2022-06-15] MEDS ORDERED: IOHEXOL 240MG/ML 0 ML IV ONE (06:57)
[2022-06-15] MEDS ORDERED: CELLULOSE,OXIDIZED 1 EACH EACH MC ONE (06:58)
--- NOTE | 2022-06-15 07:15 | NUR ---
PHOTO MASK PROCESSOR Bedside report taken from [facility] nurse Vasquez RN. pt asleep, easily arousable. AAO x1 to self, confused. and garbled speech, kyrgyz speaking only. 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 pt follows simple commands. pt blind. pt on 2L n/c, dave lung sounds clear but diminished. pt sbrady with hr 50-60s, bue, left and right fem pulses present and palpable. pt on puree diet, bedside swallow done, pt swallows, no coughing or signs of aspiration noted. bowel sounds present, hypoactive. colostomy present. abdomen soft and non distended. pt anuric, HD pt. pt has multiple wounds noted see flowsheet. all lines traced. safety measures in place. no signs of acute distress at this time. will continue to monitor.
--- NOTE | 2022-06-15 07:33 | NUR ---
PULP MILL OPERATOR Received call from PHOTONICS ENGINEERING TECHNICIAN stating that pt scheduled surgery for permeacath placement with Dr Prather was cancelled d/t family refusal of surgical procedure. charge nurse Tonny RN aware.
[2022-06-15] MEDS: TIMOLOL 0.5% SOLN OPHTH 5 ML BOTTLE EACHEYE SCH (08:02)
[2022-06-15] MEDS: BRIMONIDINE TARTRATE OPHT SOLN 5 ML BOTTLE EACHEYE SCH (08:02)
[2022-06-15] MEDS: DORZOLAMIDE OPTH 2% 10 ML BOTTLE EACHEYE SCH (08:02)
[2022-06-15] MEDS: PROSOURCE / PROSTAT (PYXIS) 30 ML UDC GT SCH (08:02)
[2022-06-15] MEDS: FINASTERIDE (5 MG) 5 MG TABLET PO SCH (08:04)
[2022-06-15] MEDS: FLUDROCORTISONE 0.1 MG TABLET PO SCH (08:04)
[2022-06-15] MEDS: CHOLECALCIFEROL 1,000 UNIT TABLET (VIT D3) PO SCH (08:04)
[2022-06-15] MEDS: MIDODRINE HCL (5MG) 5 MG TABLET PEG SCH ×3 (08:04→16:25)
[2022-06-15] MEDS: FERROUS SULFATE (325 MG) 325 MG/TAB TABLET PO SCH (08:04)
[2022-06-15] MEDS: PANTOPRAZOLE 40 MG TABLET.DR PO SCH (08:04)
[2022-06-15] MEDS: POLYVINYL ALCOHOL 15 ML BOTTLE EACHEYE SCH ×2 (08:05→16:25)
[2022-06-15] MEDS: BLOOD SUGAR DIAGNOSTIC 1 EACH STRIP IN SCH ×4 (08:05→21:40)
[2022-06-15] MEDS: THERAHONEY GEL 1.5 OZ TUBE TP SCH ×2 (08:06→16:23)
[2022-06-15] MEDS: DAKINS QUARTER STRENGTH (0.125%) 480 ML BOTTLE TOP SCH (08:06)
[2022-06-15] MEDS: MUPIROCIN OINT 2% 22 GM TUBE NS SCH ×2 (08:06→21:11)
[2022-06-15 08:47] LABS: BAND % (MANUAL) 3 % (0.0-5.0); EOSINOPHILS % (MANUAL) 5 % (0-4); LYMPHOCYTES % (MANUAL) 21 % (16-48); MONOCYTES % (MANUAL) 10 % (0-11.0); NEUTROPHILS % (MANUAL) 61 (42-76)
--- NOTE | 2022-06-15 08:49 | NUR ---
ANALYTICAL LEAD Pt sitting up in bed. student nurse feeding pt breakfast tray. pt tolerating well. no visible signs of aspiration noted. will continue to monitor.
--- NOTE | 2022-06-15 09:16 | NUR ---
BEESWAX BLEACHER Lab called, 1 unit plt ready for pt but type and screen has . new stat order for type and screen entered awaiting for lab draw.
--- NOTE | 2022-06-15 10:25 | NUR ---
DIRECTOR ALUMNI RELATIONS Rolan WAD IMPREGNATOR at bedside assessing pt and updated on pt status. WAD IMPREGNATOR aware that pt daughter Vika updated on pt condition and status , per WAD IMPREGNATOR he spoke with her and updated her also but is aware that pt daughter wants to talk to hemotologist when available. no other orders at this time. pt at bedside. will continue to monitor.
[2022-06-15] MEDS ORDERED: NEPRO VAN 237 ML CAN PO PRN (11:00)
--- NOTE | 2022-06-15 12:42 | NUR ---
NURSE MONITORING Rolan VALVE TECHNICIAN messaged and made aware that pt type and cross was and has been redrawn and is not up to date, but per lab there is no order for platelets and new order needs to be placed if 1 unit plt is still needed, per VALVE TECHNICIAN, pt does not meet criteria for plt transfusion at this time and to check with hematology. no new order.
--- NOTE | 2022-06-15 12:55 | NUR ---
TELETYPESETTER MONITOR Leeanne LOYD from hematology messaged and made aware that pt type and cross was and has been redrawn and is now up to date, but per lab there is no order for platelets and new order needs to be placed if 1 unit plt is still needed, per Rolan LOYD, pt does not meet criteria for plt transfusion at this time and to check with hematology. Per Hematology, no need for transfusion at this time. charge nurse Tonny LEE aware. Leeanne LOYD aware that pt daughter Vika Kwong wants to speak with her, pt daughter phone number given to VESSEL ORDINARY SEAMAN, per dog hair clipper she will talk to daughter when she makes rounds on pt. no other orders at this time.
--- NOTE | 2022-06-15 13:35 | NUR ---
TUBE TURNER Leeanne MIXING PLACE SUPERVISOR from hematology at bedside assessing pt and updated on pt status. per MIXING PLACE SUPERVISOR labs are slightly improved, pt does not need plt at this time. MIXING PLACE SUPERVISOR to call and update pt daughter.
--- NOTE | 2022-06-15 14:06 | NUR ---
PRIVATE EQUITY ASSOCIATE Pt bathed and cleaned. linen change done. wound care and dressing change done per protocol. skin check done, no new wounds noted. pt tolerated well. vitals stable. safety measures in place. no signs of acute distress at this time. will continue to monitor.
[2022-06-15] MEDS: INSULIN REGULAR, HUMAN 100 UNIT/ML 3 ML VIAL SQ PRN (16:36)
--- NOTE | 2022-06-15 18:00 | NUR ---
SEASONAL DELIVERY DRIVER Pt sitting up in bed RN feeding pt dinner tray. pt tolerating well. no visible signs of aspiration noted. vitals stable. safety measures in place. will continue to monitor.
--- NOTE | 2022-06-15 19:12 | NUR ---
TRICOT KNITTER Bedside report given to james Vasquez RN. pt asleep but arousable. pt on room air, tolerating well. pt clean and dry. all lines traced. vitals stable. safety measures in place. no signs of acute distress at this time. daughter updated on pt condition.
--- NOTE | 2022-06-15 20:00 | NUR ---
Received patient lethargic responsive only to painful stimuli.Afebrile.SR.Normotensive. Respiration even and unlabored on RA saturation 99%.FSBS 89.No acute distress noted. Turned and repositioned to comfort.Safety precaution maintained.Continue monitoring.
--- NOTE | 2022-06-15 20:30 | NUR ---
2030 Patient daughter at bedside talking to patient but remain unresponsive verbally only grimaces to painful stimuli.I was his face with cold towel and he open his eyes but not talking. continue to monitor patient.
--- NOTE | 2022-06-15 21:00 | NUR ---
Patient place in sitting position offered water with thickener in a sponge and he chewed on it and became more awake.No aspiration noted.
[2022-06-15] MEDS: TAMSULOSIN 0.4 MG CAP.SR.24H PO SCH (21:22)
[2022-06-15] MEDS: SIMVASTATIN 10 MG TABLET PO SCH (21:22)
[2022-06-15] MEDS: LATANOPROST EYE DROP 0.005% 2.5 ML BOTTLE EACHEYE SCH (21:23)
--- NOTE | 2022-06-15 21:40 | NUR ---
FSBS 88.Due po medications crushed administered with apple sauce while in sitting position. Well tolerated. VS remains stable.Continue monitoring.
[2022-06-16] VITALS (25 sets, daily range): BP systolic 61–148; BP diastolic 24–74
[2022-06-16 04:26] LABS: BASOPHILS % (AUTO) 0.7 % (0.0-2.0); EOSINOPHILS % (AUTO) 5.1 % (0.0-6.0); HEMATOCRIT 25 % (39-51); LYMPHOCYTES # (AUTO) 1.5 K/uL (0.8-4.8); LYMPHOCYTES % (AUTO) 24.3 % (20.0-44.0); MEAN CORPUSCULAR HGB CONC 33 g/dl (31.0-36.0); MEAN CORPUSCULAR VOLUME 92 fL (80-96); MONOCYTES # (AUTO) 0.6 K/uL (0.1-1.30); MONOCYTES % (AUTO) 9.3 % (2.0-12.0); NEUTROPHILS # (AUTO) 3.6 K/uL (1.8-8.9); NEUTROPHILS % (AUTO) 60.6 % (43.0-81.0); PLATELET COUNT (AUTO) 80 K/uL (150-450); RED BLOOD CELL COUNT(AUTO) 2.67 MIL/uL (4.5-6.0)
[2022-06-16 04:38] LABS: D-DIMER 1.08 mg/L(FEU (0.17-0.50)
[2022-06-16 04:45] LABS: CALCIUM, SERUM 8.3 mg/dL (8.5-10.1); CREATININE 4.6 mg/dL (0.6-1.3); POTASSIUM 4.5 mmol/L (3.5-5.1)
--- NOTE | 2022-06-16 06:50 | NUR ---
Patient resting more alert and able to verbalize needs.No acute distress noted.VS remains stable.AM care done.Wound care done.Turned and repositioned to comfort.Safety precaution in place.Continue monitoring.
--- NOTE | 2022-06-16 07:05 | NUR ---
INDUSTRIAL ENGINEERING PROFESSOR Bedside report taken from [facility] nurse Vasquez RN. pt asleep, easily arousable. AAO x1 to self, confused. and garbled speech, italian speaking only. 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 pt follows simple commands. pt blind. pt on room air, dave lung sounds clear but diminished, spo2 100%. pt sbrady with hr 50-60s, bue, left and right fem pulses present and palpable. pt on puree diet, bedside swallow done, pt swallows, no coughing or signs of aspiration noted. bowel sounds present, hypoactive. colostomy present. abdomen soft and non distended. pt anuric, HD pt. pt has multiple wounds noted see flowsheet. all lines traced. safety measures in place. no signs of acute distress at this time. will continue to monitor.
[2022-06-16] MEDS: PANTOPRAZOLE 40 MG TABLET.DR PO SCH (08:02)
[2022-06-16] MEDS: BLOOD SUGAR DIAGNOSTIC 1 EACH STRIP IN SCH ×4 (08:02→22:18)
[2022-06-16] MEDS: FINASTERIDE (5 MG) 5 MG TABLET PO SCH (08:02)
[2022-06-16] MEDS: CHOLECALCIFEROL 1,000 UNIT TABLET (VIT D3) PO SCH (08:02)
[2022-06-16] MEDS: FAMOTIDINE (20 MG) 20 MG TABLET PO SCH (08:03)
[2022-06-16] MEDS: FLUDROCORTISONE 0.1 MG TABLET PO SCH (08:03)
[2022-06-16] MEDS: PROSOURCE / PROSTAT (PYXIS) 30 ML UDC GT SCH (08:03)
[2022-06-16] MEDS: MIDODRINE HCL (5MG) 5 MG TABLET PEG SCH ×3 (08:03→16:21)
[2022-06-16] MEDS: BRIMONIDINE TARTRATE OPHT SOLN 5 ML BOTTLE EACHEYE SCH (08:04)
[2022-06-16] MEDS: DORZOLAMIDE OPTH 2% 10 ML BOTTLE EACHEYE SCH (08:04)
[2022-06-16] MEDS: TIMOLOL 0.5% SOLN OPHTH 5 ML BOTTLE EACHEYE SCH (08:04)
[2022-06-16] MEDS: MUPIROCIN OINT 2% 22 GM TUBE NS SCH ×2 (08:06→21:07)
[2022-06-16] MEDS: POLYVINYL ALCOHOL 15 ML BOTTLE EACHEYE SCH ×2 (08:07→16:23)
[2022-06-16] MEDS: DAKINS QUARTER STRENGTH (0.125%) 480 ML BOTTLE TOP SCH (08:07)
[2022-06-16] MEDS: THERAHONEY GEL 1.5 OZ TUBE TP SCH ×2 (08:07→16:23)
--- NOTE | 2022-06-16 08:11 | NUR ---
GROCERY MANAGER Dr Patel at bedside assessing pt and updated on pt status. no new orders at this time.
--- NOTE | 2022-06-16 08:40 | NUR ---
LABORER PULLET FARM Pt sitting up in bed being fed breakfast tray. bedside swallow done, no visible signs of aspiration noted, pt tolerating well. will continue to monitor.
--- NOTE | 2022-06-16 09:18 | NUR ---
BANQUET STEWARD Pt bathed and cleaned. colostomy emptied. linen change done. skin check done, no new wounds noted. pt tolerated well. vitals stable. safety measures in place. will continue to monitor.
[2022-06-16 12:20] LABS: BASOPHILS % (MANUAL) 0 % (0.0-2.0); EOSINOPHILS % (MANUAL) 2 % (0-4); LYMPHOCYTES % (MANUAL) 25 % (16-48); MONOCYTES % (MANUAL) 11 % (0-11.0); NEUTROPHILS % (MANUAL) 66 (42-76)
--- NOTE | 2022-06-16 17:44 | NUR ---
IVORY CARVER Pt offered dinner tray. pt refused dinner tray stating that he does not want anything and that he wants to sleep.
--- NOTE | 2022-06-16 18:53 | NUR ---
DRY GOODS INSPECTOR Bedside report given to noc nurse Tori LEE. pt asleep but arousable. pt on room air, tolerating well. pt clean and dry. all lines traced. vitals stable. safety measures in place. no signs of acute distress at this time. HD pending endorsed to noc nurse.
--- NOTE | 2022-06-16 19:30 | NUR ---
AIRCRAFT ENGINEER OPENING NOTE RECEIVED PT IN BED, ASLEEP. CURRENTLY ON RA, TOLERATING WELL SATING @ 99%. NO S/SX OF ACUTE RESPI DISTRESS NOTED AT THIS TIME. NO SOB, BREATHING IS EVEN AND UNLABORED. ASSISTANT FOOD SERVICE MANAGER READS SB WITH HR IN 50s. IV NOTED ON SARAH ML, SL. PATENT AND INTACT, FLUSHES WELL. COLOSTOMY NOTED WITH GREENISH OUTPUT NOTED. ALL SAFETY MEASURES IN PLACE: BED LOCKED IN LOW POSITION. BED ALARM ON. SR UP X 3. CALL LIGHT WITHIN REACH. WILL CONTINUE TO MONITOR PT.
--- NOTE | 2022-06-16 19:50 | NUR ---
RN NOTE PT PUT ON SILVANA TANNER BLANKET. UNABLE TO READ TEMP AT THIS TIME. WILL RETAKE LATER.
[2022-06-16] MEDS: TAMSULOSIN 0.4 MG CAP.SR.24H PO SCH (21:08)
[2022-06-16] MEDS: LATANOPROST EYE DROP 0.005% 2.5 ML BOTTLE EACHEYE SCH (21:11)
[2022-06-16] MEDS: NOREPINEPHRINE 32 MG in IV NS 0.9% 218 ML IV PRN (21:36)
--- NOTE | 2022-06-16 21:50 | NUR ---
RN NOTE STARTED PT ON LEVO @ 0.1 MCG/KG/MIN. PT SBP DROPPED TO 75. WILL CONTINUE TO MONITOR.
[2022-06-16] MEDS: INSULIN REGULAR, HUMAN 100 UNIT/ML 3 ML VIAL SQ PRN (22:23)
--- NOTE | 2022-06-16 22:23 | NUR ---
RN NOTE PT BG IS 165. DID NOT GIVE INSULIN COVERAGE DUE TO PT'S POOR INTAKE. HE REFUSED DINNER EARLIER. PT ALSO KNOWN TO HAVE HIS BG DROP DRAMATICALLY WHEN GIVEN INSULIN. WILL CONTINUE TO MONITOR.
[2022-06-16] MEDS ORDERED: SIMVASTATIN 20 MG TABLET ONE (22:39)
[2022-06-16] MEDS: SIMVASTATIN 10 MG TABLET PO SCH (22:44)
[2022-06-17] VITALS (78 sets, daily range): BP systolic 41–196; BP diastolic 20–104
[2022-06-17 05:09] LABS: BASOPHILS # (AUTO) 0.1 K/uL (0.0-0.2); BASOPHILS % (AUTO) 0.8 % (0.0-2.0); EOSINOPHILS % (AUTO) 6.9 % (0.0-6.0); HEMATOCRIT 33 % (39-51); HEMOGLOBIN 10.5 g/dL (13.5-17.5); LYMPHOCYTES # (AUTO) 1.7 K/uL (0.8-4.8); LYMPHOCYTES % (AUTO) 22.6 % (20.0-44.0); MEAN CORPUSCULAR HGB CONC 32 g/dl (31.0-36.0); MEAN CORPUSCULAR VOLUME 94 fL (80-96); MONOCYTES # (AUTO) 0.4 K/uL (0.1-1.30); MONOCYTES % (AUTO) 5.9 % (2.0-12.0); NEUTROPHILS # (AUTO) 4.7 K/uL (1.8-8.9); NEUTROPHILS % (AUTO) 63.8 % (43.0-81.0); PLATELET COUNT (AUTO) 134 K/uL (150-450); RED BLOOD CELL COUNT(AUTO) 3.53 MIL/uL (4.5-6.0); WHITE BLOOD COUNT (AUTO) 7.3 K/uL (4.3-11.0)
[2022-06-17 05:17] LABS: CALCIUM, SERUM 9.3 mg/dL (8.5-10.1); CREATININE 5.3 mg/dL (0.6-1.3); POTASSIUM 4.9 mmol/L (3.5-5.1)
[2022-06-17 05:22] LABS: D-DIMER 1.23 mg/L(FEU (0.17-0.50)
--- NOTE | 2022-06-17 06:14 | NUR ---
CHICKEN AND FISH BUTCHER CLOSING NOTE PT ON LEVO @ 0.01 MCG/KG/MIN. BP IS ERRATIC, GOES WAY UP HIGH THEN GOES DOWN VERY LOW. WILL ENDORSE TO AM SHIFT NURSE FOR SUDHIR. ALL SAFETY MEASURES IN EFFECT. DUE MEDS GIVEN. PM CARE DONE. ALL NEEDS MET.
--- NOTE | 2022-06-17 07:15 | NUR ---
HELP DESK TECHNICIAN Bedside report taken from [facility] nurse Nettie RN. pt asleep, easily arousable. AAO x1 to self, confused. and garbled speech, yoruba speaking only. 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 pt follows simple commands. pt blind. pt on room air, dave lung sounds clear but diminished, spo2 100%. pt sbrady with hr 50-60s, bue, left and right fem pulses present and palpable. pt on puree diet, bedside swallow done, pt swallows, no coughing or signs of aspiration noted. bowel sounds present, hypoactive. colostomy present. abdomen soft and non distended. pt anuric, HD pt. pt has multiple wounds noted see flowsheet. all lines traced. safety measures in place. no signs of acute distress at this time. will continue to monitor.
[2022-06-17] MEDS: BLOOD SUGAR DIAGNOSTIC 1 EACH STRIP IN SCH ×4 (08:17→22:00)
[2022-06-17] MEDS: FINASTERIDE (5 MG) 5 MG TABLET PO SCH (08:17)
[2022-06-17] MEDS: PANTOPRAZOLE 40 MG TABLET.DR PO SCH (08:17)
[2022-06-17] MEDS: CHOLECALCIFEROL 1,000 UNIT TABLET (VIT D3) PO SCH (08:17)
[2022-06-17] MEDS: PROSOURCE / PROSTAT (PYXIS) 30 ML UDC GT SCH (08:17)
[2022-06-17] MEDS: TIMOLOL 0.5% SOLN OPHTH 5 ML BOTTLE EACHEYE SCH (08:18)
[2022-06-17] MEDS: BRIMONIDINE TARTRATE OPHT SOLN 5 ML BOTTLE EACHEYE SCH (08:18)
[2022-06-17] MEDS: DORZOLAMIDE OPTH 2% 10 ML BOTTLE EACHEYE SCH (08:18)
[2022-06-17] MEDS: MIDODRINE HCL (5MG) 5 MG TABLET PEG SCH ×3 (08:18→17:34)
[2022-06-17] MEDS: THERAHONEY GEL 1.5 OZ TUBE TP SCH ×2 (08:19→17:36)
[2022-06-17] MEDS: DAKINS QUARTER STRENGTH (0.125%) 480 ML BOTTLE TOP SCH (08:19)
[2022-06-17] MEDS: MUPIROCIN OINT 2% 22 GM TUBE NS SCH ×2 (08:19→21:34)
[2022-06-17] MEDS: POLYVINYL ALCOHOL 15 ML BOTTLE EACHEYE SCH ×2 (08:19→17:35)
[2022-06-17] MEDS: FLUDROCORTISONE 0.1 MG TABLET PO SCH (08:19)
--- NOTE | 2022-06-17 08:25 | NUR ---
STRIPPER COLOR Pt sitting up in bed being fed breakfast. bedside swallow done no visible signs of aspiration note. pt tolerating breakfast well. arrived at bedside and took over feeding pt breakfast. HD nurse at bedside setting up to start dialysis. pt awake, vitals stable. safety measures in place. will continue to monitor.
[2022-06-17] MEDS ORDERED: CELLULOSE,OXIDIZED 1 PKT EACH MC PRN (11:30)
--- NOTE | 2022-06-17 12:12 | NUR ---
OTR FLATBED DRIVER HD completed. pt tolerated well. no visible signs of distress at this time. Manual pressure held to erika av fistula site by HD RN, no visible signs of bleeding or hematoma noted. 2L removed during HD. pt tolerated well. vitals stable. family at bedside feeding pt lunch tray. pt tolerating well. will continue to monitor.
[2022-06-17] MEDS: ALBUMIN 25% 25 GM in PREMIX 1 EA IV PRN (12:16)
--- NOTE | 2022-06-17 14:52 | NUR ---
rv service technician Per pharmacy do not give vancomycin, hold dose. charge nurse Tonny LEE aware.
--- NOTE | 2022-06-17 16:05 | NUR ---
GROUND MIXER Pt bathed and cleaned. linen change done. wound care and dressing change done per protocol. skin check done, no new wounds noted. pt tolerated well. vitals stable. safety measures in place. will continue to monitor.
--- NOTE | 2022-06-17 16:39 | NUR ---
YARD CRANE OPERATOR Bedside report given to Kylie LEE and Samantha RN. pt asleep but arousable. pt on 2L n/c, tolerating well. pt clean and dry. all lines traced. all drips verified. vitals stable. safety measures in place. no signs of acute distress at this time.
--- NOTE | 2022-06-17 16:56 | NUR ---
RESUME CARE, BEDSIDE REPORT RECEIVED FROM JESUS CASTILLO.
--- NOTE | 2022-06-17 17:37 | NUR ---
PM INSULIN: BG 233, DAUGHTER REFUSED, STATED THAT PT VERY SENSITIVE TO INSULIN.
--- NOTE | 2022-06-17 19:15 | NUR ---
CLOSING NOTE: THERE ARE NO CHANGE IN PATIENT'S STATUS. LEVOPHED INFUSING PER MD ORDER. PATIENT'S CHECKED HOURLY BY NURSING STAFF.
--- NOTE | 2022-06-17 19:30 | NUR ---
LEAD MAINTENANCE TECHNICIAN OPENING NOTE RECEIVED PT IN BED, AWAKE, DAUGHTER ON BEDSIDE. CURRENTLY ON 3L OF 02, TOLERATING WELL SATING @ 100%. NO S/SX OF ACUTE RESPI DISTRESS NOTED AT THIS TIME. NO SOB, BREATHING IS EVEN AND UNLABORED. SAWING AND ASSEMBLY SUPERVISOR READS SR WITH HR IN 90s. IV NOTED ON SARAH ML, RUNNING NS TKO AND LEVO @ 0.1 MCG/KG/MIN. PATENT AND INTACT, FLUSHES WELL. COLOSTOMY NOTED WITH YELLOWISH OUTPUT NOTED. ALL SAFETY MEASURES IN PLACE: BED LOCKED IN LOW POSITION. BED ALARM ON. SR UP X 3. CALL LIGHT WITHIN REACH. WILL CONTINUE TO MONITOR PT.
[2022-06-17] MEDS ORDERED: SIMVASTATIN 20 MG TABLET ONE (21:11)
[2022-06-17] MEDS: TAMSULOSIN 0.4 MG CAP.SR.24H PO SCH (21:33)
[2022-06-17] MEDS: SIMVASTATIN 10 MG TABLET PO SCH (21:34)
[2022-06-17] MEDS: LATANOPROST EYE DROP 0.005% 2.5 ML BOTTLE EACHEYE SCH (21:34)
[2022-06-18] VITALS (48 sets, daily range): BP systolic 72–254; BP diastolic 18–126
[2022-06-18] MEDS: INSULIN REGULAR, HUMAN 100 UNIT/ML 3 ML VIAL SQ PRN ×3 (00:35→21:34)
[2022-06-18 05:08] LABS: BASOPHILS # (AUTO) 0.1 K/uL (0.0-0.2); BASOPHILS % (AUTO) 1.3 % (0.0-2.0); EOSINOPHILS % (AUTO) 8.3 % (0.0-6.0); HEMATOCRIT 26 % (39-51); HEMOGLOBIN 8.5 g/dL (13.5-17.5); LYMPHOCYTES # (AUTO) 1.4 K/uL (0.8-4.8); MEAN CORPUSCULAR HGB CONC 32 g/dl (31.0-36.0); MEAN CORPUSCULAR VOLUME 94 fL (80-96); MONOCYTES # (AUTO) 0.5 K/uL (0.1-1.30); MONOCYTES % (AUTO) 10.1 % (2.0-12.0); NEUTROPHILS # (AUTO) 2.9 K/uL (1.8-8.9); NEUTROPHILS % (AUTO) 54.3 % (43.0-81.0); PLATELET COUNT (AUTO) 102 K/uL (150-450); RED BLOOD CELL COUNT(AUTO) 2.82 MIL/uL (4.5-6.0); WHITE BLOOD COUNT (AUTO) 5.4 K/uL (4.3-11.0)
[2022-06-18 05:20] LABS: CALCIUM, SERUM 8.7 mg/dL (8.5-10.1); POTASSIUM 4.2 mmol/L (3.5-5.1)
--- NOTE | 2022-06-18 06:17 | NUR ---
YOUTH NUTRITIONAL MONITOR CLOSING NOTE PT ON LEVO @ 0.06 MCG/KG/MIN. BP STILL CHANGES ERRATICALLY, CAN GO WAY UP HIGH THEN GOES DOWN VERY LOW. COLOSTOMY CHANGED 3X DURING THE NIGHT. EASILY GETS FULL. PM CARE DONE. TURNED AND REPOSITIONED. ALL SAFETY MEASURES IN EFFECT. ALL NEEDS MET AT THIS TIME. WILL ENDORSE TO AM SHIFT NURSE FOR SUDHIR.
[2022-06-18] MEDS: BLOOD SUGAR DIAGNOSTIC 1 EACH STRIP IN SCH ×5 (08:00→21:48)
[2022-06-18] MEDS: PANTOPRAZOLE 40 MG TABLET.DR PO SCH (08:03)
[2022-06-18] MEDS: THERAHONEY GEL 1.5 OZ TUBE TP SCH ×2 (08:20→17:33)
[2022-06-18] MEDS: DAKINS QUARTER STRENGTH (0.125%) 480 ML BOTTLE TOP SCH (08:20)
[2022-06-18] MEDS: MUPIROCIN OINT 2% 22 GM TUBE NS SCH ×2 (08:55→21:49)
[2022-06-18] MEDS: BRIMONIDINE TARTRATE OPHT SOLN 5 ML BOTTLE EACHEYE SCH (09:18)
[2022-06-18] MEDS: TIMOLOL 0.5% SOLN OPHTH 5 ML BOTTLE EACHEYE SCH (09:18)
[2022-06-18] MEDS: DORZOLAMIDE OPTH 2% 10 ML BOTTLE EACHEYE SCH (09:18)
[2022-06-18] MEDS: NOREPINEPHRINE 32 MG in IV NS 0.9% 218 ML IV PRN (09:22)
[2022-06-18] MEDS: PROSOURCE / PROSTAT (PYXIS) 30 ML UDC GT SCH (09:23)
[2022-06-18] MEDS: POLYVINYL ALCOHOL 15 ML BOTTLE EACHEYE SCH ×2 (09:24→17:33)
[2022-06-18] MEDS: FLUDROCORTISONE 0.1 MG TABLET PO SCH (09:28)
[2022-06-18] MEDS: MIDODRINE HCL (5MG) 5 MG TABLET PEG SCH ×3 (09:28→18:08)
[2022-06-18] MEDS: FAMOTIDINE (20 MG) 20 MG TABLET PO SCH (09:28)
[2022-06-18] MEDS: FINASTERIDE (5 MG) 5 MG TABLET PO SCH (09:29)
[2022-06-18] MEDS: CHOLECALCIFEROL 1,000 UNIT TABLET (VIT D3) PO SCH (09:29)
[2022-06-18] MEDS: HYDROCORTISONE SOD SUCCINATE 100 MG/2 ML VIAL IV SCH ×3 (09:32→21:47)
[2022-06-18] MEDS: IV NS 0.9% 250 ML IV PRN (09:37)
--- NOTE | 2022-06-18 13:12 | NUR ---
RN NOTE BLOOD SUGAR AT 312MG/DL AFTER PATIENT ATE LUNCH. FAMILY AT BEDSIDE. EDUCATED TO TEST BLOOD SUGAR BEFORE EATING MEALS.
[2022-06-18] MEDS ORDERED: DEXTROSE 50%-WATER 50 ML DISP.SYRIN IV PRN (18:00)
[2022-06-18] MEDS: TAMSULOSIN 0.4 MG CAP.SR.24H PO SCH (21:47)
[2022-06-18] MEDS: SIMVASTATIN 10 MG TABLET PO SCH (21:47)
[2022-06-18] MEDS: LATANOPROST EYE DROP 0.005% 2.5 ML BOTTLE EACHEYE SCH (21:49)
[2022-06-18] MEDS ORDERED: INSULIN REGULAR, HUMAN 100 UNIT/ML 10 ML VIAL IV ONE (22:00)
[2022-06-19] VITALS (29 sets, daily range): BP systolic 86–151; BP diastolic 22–86
[2022-06-19 04:45] LABS: BASOPHILS % (AUTO) 0.3 % (0.0-2.0); EOSINOPHILS % (AUTO) 0.3 % (0.0-6.0); HEMATOCRIT 27 % (39-51); HEMOGLOBIN 8.5 g/dL (13.5-17.5); LYMPHOCYTES # (AUTO) 0.7 K/uL (0.8-4.8); LYMPHOCYTES % (AUTO) 27.2 % (20.0-44.0); MEAN CORPUSCULAR HGB CONC 32 g/dl (31.0-36.0); MEAN CORPUSCULAR VOLUME 93 fL (80-96); MONOCYTES # (AUTO) 0.1 K/uL (0.1-1.30); MONOCYTES % (AUTO) 3.1 % (2.0-12.0); NEUTROPHILS # (AUTO) 1.8 K/uL (1.8-8.9); NEUTROPHILS % (AUTO) 69.1 % (43.0-81.0); PLATELET COUNT (AUTO) 92 K/uL (150-450); RED BLOOD CELL COUNT(AUTO) 2.87 MIL/uL (4.5-6.0); WHITE BLOOD COUNT (AUTO) 2.5 K/uL (4.3-11.0)
[2022-06-19] MEDS: HYDROCORTISONE SOD SUCCINATE 100 MG/2 ML VIAL IV SCH ×2 (04:47→20:59)
[2022-06-19 04:52] LABS: CALCIUM, SERUM 8.8 mg/dL (8.5-10.1); CREATININE 4.7 mg/dL (0.6-1.3); POTASSIUM 4.8 mmol/L (3.5-5.1)
[2022-06-19 05:28] LABS: BAND % (MANUAL) 3 % (0.0-5.0); BASOPHILS % (MANUAL) 0 % (0.0-2.0); EOSINOPHILS % (MANUAL) 2 % (0-4); LYMPHOCYTES % (MANUAL) 30 % (16-48); MONOCYTES % (MANUAL) 8 % (0-11.0); NEUTROPHILS % (MANUAL) 57 (42-76)
[2022-06-19] MEDS: BLOOD SUGAR DIAGNOSTIC 1 EACH STRIP IN SCH ×4 (07:37→21:28)
[2022-06-19] MEDS: INSULIN REGULAR, HUMAN 100 UNIT/ML 3 ML VIAL SQ PRN ×4 (07:39→21:34)
[2022-06-19] MEDS: FINASTERIDE (5 MG) 5 MG TABLET PO SCH (08:39)
[2022-06-19] MEDS: PANTOPRAZOLE 40 MG TABLET.DR PO SCH (08:39)
[2022-06-19] MEDS: PROSOURCE / PROSTAT (PYXIS) 30 ML UDC GT SCH (08:39)
[2022-06-19] MEDS: CHOLECALCIFEROL 1,000 UNIT TABLET (VIT D3) PO SCH (08:40)
[2022-06-19] MEDS: MIDODRINE HCL (5MG) 5 MG TABLET PEG SCH ×4 (08:40→17:03)
[2022-06-19] MEDS: FLUDROCORTISONE 0.1 MG TABLET PO SCH (08:40)
[2022-06-19] MEDS: THERAHONEY GEL 1.5 OZ TUBE TP SCH ×2 (08:41→16:50)
[2022-06-19] MEDS: DORZOLAMIDE OPTH 2% 10 ML BOTTLE EACHEYE SCH (08:42)
[2022-06-19] MEDS: TIMOLOL 0.5% SOLN OPHTH 5 ML BOTTLE EACHEYE SCH (08:42)
[2022-06-19] MEDS: MUPIROCIN OINT 2% 22 GM TUBE NS SCH ×2 (08:42→21:00)
[2022-06-19] MEDS: POLYVINYL ALCOHOL 15 ML BOTTLE EACHEYE SCH ×2 (08:43→16:50)
[2022-06-19] MEDS: DAKINS QUARTER STRENGTH (0.125%) 480 ML BOTTLE TOP SCH (08:45)
[2022-06-19] MEDS: BRIMONIDINE TARTRATE OPHT SOLN 5 ML BOTTLE EACHEYE SCH (08:50)
[2022-06-19] MEDS ORDERED: HYDROCORTISONE SOD SUCCINATE 100 MG/2 ML VIAL IV SCH (12:00)
[2022-06-19] MEDS: IV NS 0.9% 250 ML IV PRN (13:50)
--- NOTE | 2022-06-19 19:12 | NUR ---
RN NOTES PT IS ON CONT MORPHINE DRIP FOR COMFORT MEASURES AT THIS TIME. REPORT GIV[facility] TO [facility] FOR CONTINUATION OF CARE. FAMILY AT BEDSIDE; NO NEEDS AT THIS TIME. Addendum: 06/19/22 at 1914 by KENNETH MCCRACKEN RN WRONG PT PLEASE DISREGARD THIS NOTE
--- NOTE | 2022-06-19 19:16 | NUR ---
RN CLOSING NOTES VITAL SIGNS STABLE. NO COMPLAINTS OF PAIN AT THIS TIME. ALL DUE MEDICATIONS GIVEN. FAMILY AT BEDSIDE, NO NEEDS AT THIS TIME. REPORT GIVEN TO ONCOMING NURSE FOR CONTINUATION OF CARE.
[2022-06-19] MEDS: SIMVASTATIN 10 MG TABLET PO SCH (22:22)
[2022-06-19] MEDS: LATANOPROST EYE DROP 0.005% 2.5 ML BOTTLE EACHEYE SCH (22:22)
[2022-06-19] MEDS: TAMSULOSIN 0.4 MG CAP.SR.24H PO SCH (22:22)
[2022-06-20] VITALS (31 sets, daily range): BP systolic 108–171; BP diastolic 54–105
--- NOTE | 2022-06-20 02:35 | NUR ---
RN NOTES PATIENT'S DAUGHTER MATT VISITED THE PATIENT AT 1934 AND REQUESTED TO WRITE A NOTE THAT NURSES DO NOT GIVE INSULIN TO HER FATHER IF BLOOD SUGAR IS LESS THAN 300. Addendum: 06/21/22 at 0248 by DARWIN SAHNI RN CORRECT TIME FOR CHARTING 06/20/22 AT 1935.
[2022-06-20 04:43] LABS: BASOPHILS % (AUTO) 0.2 % (0.0-2.0); EOSINOPHILS % (AUTO) 0.3 % (0.0-6.0); HEMATOCRIT 30 % (39-51); HEMOGLOBIN 9.4 g/dL (13.5-17.5); LYMPHOCYTES # (AUTO) 0.9 K/uL (0.8-4.8); LYMPHOCYTES % (AUTO) 14.9 % (20.0-44.0); MEAN CORPUSCULAR HGB CONC 32 g/dl (31.0-36.0); MEAN CORPUSCULAR VOLUME 94 fL (80-96); MONOCYTES # (AUTO) 0.2 K/uL (0.1-1.30); MONOCYTES % (AUTO) 3.5 % (2.0-12.0); NEUTROPHILS # (AUTO) 4.7 K/uL (1.8-8.9); NEUTROPHILS % (AUTO) 81.1 % (43.0-81.0); PLATELET COUNT (AUTO) 94 K/uL (150-450); RED BLOOD CELL COUNT(AUTO) 3.15 MIL/uL (4.5-6.0); WHITE BLOOD COUNT (AUTO) 5.8 K/uL (4.3-11.0)
[2022-06-20 05:09] LABS: CALCIUM, SERUM 8.8 mg/dL (8.5-10.1); CREATININE 5.3 mg/dL (0.6-1.3); POTASSIUM 5.1 mmol/L (3.5-5.1)
[2022-06-20 05:55] LABS: BASOPHILS % (MANUAL) 2 % (0.0-2.0); LYMPHOCYTES % (MANUAL) 12 % (16-48); MONOCYTES % (MANUAL) 6 % (0-11.0); NEUTROPHILS % (MANUAL) 80 (42-76)
--- NOTE | 2022-06-20 07:40 | NUR ---
ICU/RN PT IS RESTING ON 2L N/C SAT O2-100%.V/S STABLE,AFEBRILE .NO PAIN REPORTED AT THIS TIME.LEFT UPPER ARM MIDLINE.ANURIC ON HD RIGHT UPPER ARM FISTULA.SACRAL AREA COVERED WITH DRESSING HAS RIGHT BKA AND LEFT FOOT PARTIALLY AMPUTATED WITH DRESSING ON.COLOSTOMY BAG DRAINING WITH YELLOW LIQUID STOOL.LABS REVIEW.
[2022-06-20] MEDS: BLOOD SUGAR DIAGNOSTIC 1 EACH STRIP IN SCH ×4 (08:04→23:01)
[2022-06-20] MEDS: PANTOPRAZOLE 40 MG TABLET.DR PO SCH (08:28)
[2022-06-20] MEDS: CHOLECALCIFEROL 1,000 UNIT TABLET (VIT D3) PO SCH (08:28)
[2022-06-20] MEDS: HYDROCORTISONE SOD SUCCINATE 100 MG/2 ML VIAL IV SCH ×2 (08:28→21:09)
[2022-06-20] MEDS: FINASTERIDE (5 MG) 5 MG TABLET PO SCH (08:28)
[2022-06-20] MEDS: FLUDROCORTISONE 0.1 MG TABLET PO SCH (08:28)
[2022-06-20] MEDS: FAMOTIDINE (20 MG) 20 MG TABLET PO SCH (08:28)
[2022-06-20] MEDS: MIDODRINE HCL (5MG) 5 MG TABLET PEG SCH ×3 (08:29→16:30)
[2022-06-20] MEDS: PROSOURCE / PROSTAT (PYXIS) 30 ML UDC GT SCH (08:29)
[2022-06-20] MEDS: BRIMONIDINE TARTRATE OPHT SOLN 5 ML BOTTLE EACHEYE SCH (08:30)
[2022-06-20] MEDS: POLYVINYL ALCOHOL 15 ML BOTTLE EACHEYE SCH ×2 (08:30→16:30)
[2022-06-20] MEDS: TIMOLOL 0.5% SOLN OPHTH 5 ML BOTTLE EACHEYE SCH (08:31)
[2022-06-20] MEDS: DORZOLAMIDE OPTH 2% 10 ML BOTTLE EACHEYE SCH (08:31)
[2022-06-20] MEDS: MUPIROCIN OINT 2% 22 GM TUBE NS SCH ×2 (08:31→21:08)
[2022-06-20] MEDS: INSULIN REGULAR, HUMAN 100 UNIT/ML 3 ML VIAL SQ PRN ×2 (08:33→17:43)
[2022-06-20] MEDS: DAKINS QUARTER STRENGTH (0.125%) 480 ML BOTTLE TOP SCH (08:38)
[2022-06-20] MEDS: THERAHONEY GEL 1.5 OZ TUBE TP SCH ×2 (08:38→16:31)
--- NOTE | 2022-06-20 09:00 | NUR ---
ICU/RN DUE MEDS ARE GIVEN ORDERED. HD STARTED HD NURSE AT BEDSIDE.
[2022-06-20] MEDS: EPOETIN ALFA-EPBX 10,000 UNIT/ML VIAL SQ SCH (09:41)
--- NOTE | 2022-06-20 12:20 | NUR ---
ICU/RN HD IS OVER 1 L OUTPUT. NO S/S OF BLEEDING FROM HD FISTULA.PRESSURE DRESSING ON .FAMILY AT BED SIDE.
--- NOTE | 2022-06-20 17:20 | NUR ---
ZHEN RN NOTES: RECEIVED PT FROM ICU URDU SPEAKING ALERT AND ORIENTED X 1-2, NOT IN ANY DISTRESS, ON OXYGEN 2 LITER VIA NASAL CANNULA, LEGALLY BLIND WILL MONITOR.BED KEPT IN LOW AND LOCKED POSITION, CALL LIGHT WITHIN REACH, SIDE RAILS UP
--- NOTE | 2022-06-20 17:20 | NUR ---
ICU/RN PT TRANSFERED TO TELE UNIT.V/S STABLE AFEBRILE.NO PAIN REPORTED AT THIS TIME. PM CARE PROVIDED.WOUND DRESSING DONE ORDERED. DUE MEDS ARE GIVEN. REPORT GIVEN TO WOLFGANG/JESUS.
--- NOTE | 2022-06-20 19:30 | NUR ---
CADD TECHNICIAN NOTES RECEIVED PATIENT AWAKE IN BED. PATIENT IS A/O TIMES 2, [place] SPEAKER AND LEGALLY BLIND. ON TELE MONITOR READING SR. NO PAIN NOTED. NO SOB NOTED. NO DISTRESS NOTED. PATIENT'S RIGHT UPPER ARM FISTULA DRESSING INTACT AND NOT BLEEDING. NO BLEEDING NOTED. COLOSTOMY BAG IN PLACE. NOTED MID LINE SOAKING. FLUSHED NOTED LEAKING OF THE MIDLINE. PATIENT ALSO HAS LEFT UPPER ARM IV ACCESS. FLUSHED PATENT AND INTACT. PATIENT IS ANURIC. PATIENT IS MRSA POSITIVE FOR NARES. PATIENT IS TRANSFER FROM ICU . HE CAME PREVIOUS SHIFT. CHECKED THE CHART THERE WERE NO PHOTO AFTER ADMISSION TO THE [facility]. CLARIFIES WITH THE CHARGE NURSE SIMEON IF I NEED TO TAKE ANY PHOTOS. SHE STATED I DO NOT NEED TO TAKE ANY PICTURES . PATIENT HAS AMPUTATION ON BOTH LEGS. ALL NEEDS ATTENDED. ALL SAFETY MEASURES IN PLACE. BED LOCKED IN THE LOWEST POSITION. CALL LIGHT AND TABLE IN EASY REACH. SIDE RAILS UP TIMES 2. WILL CONTINUE TO MONITOR CLOSELY.
[2022-06-20] MEDS: TAMSULOSIN 0.4 MG CAP.SR.24H PO SCH (21:08)
[2022-06-20] MEDS: SIMVASTATIN 10 MG TABLET PO SCH (21:08)
[2022-06-20] MEDS: LATANOPROST EYE DROP 0.005% 2.5 ML BOTTLE EACHEYE SCH (21:08)
[2022-06-21] VITALS: BP 159/76
[2022-06-21 04:16] VITALS: BP 112/43
[2022-06-21] MEDS: BLOOD SUGAR DIAGNOSTIC 1 EACH STRIP IN SCH ×4 (05:46→22:29)
[2022-06-21] MEDS: INSULIN REGULAR, HUMAN 100 UNIT/ML 3 ML VIAL SQ PRN ×4 (05:49→22:33)
--- NOTE | 2022-06-21 06:21 | NUR ---
RN NOTES CHECKED MORNING BEFORE BREAKFAST BLOOD SUGAR NOTED 504. SINCE PER DAUGHTER'S REQUEST INSULIN NOT GIVEN LAST NIGHT. GAVE 10 UNITS REGULAR INSULIN PER ORDER. WILL CHECK IN 30 MIN. PATIENT IS AWAKE AND SPEAKING TO THE ALLIGATOR HUNTER.
--- NOTE | 2022-06-21 06:25 | NUR ---
HOSPICE SUPERINTENDENT NOTES PATIENT AWAKE IN BED. PATIENT IS A/O TIMES 2, CROATIAN SPEAKER AND LEGALLY BLIND. ON TELE MONITOR READING SR. NO PAIN NOTED. NO SOB NOTED. NO DISTRESS NOTED. PATIENT'S RIGHT UPPER ARM FISTULA DRESSING INTACT AND NO BLEEDING NOTED DURING SHIFT.CHANGED COLOSTOMY BAG. COLOSTOMY BAG IN PLACE. NOTED MID LINE SOAKING. FLUSHED AND NOTED LEAKING OF THE MIDLINE. PATIENT ALSO HAS LEFT UPPER ARM IV ACCESS. FLUSHED PATENT AND INTACT. PATIENT IS ANURIC. PATIENT IS MRSA POSITIVE FOR NARES. PATIENT HAS AMPUTATION ON BOTH LEGS. ALL DUE MEDS GIVEN ORDER. ALL NEEDS ATTENDED. ALL SAFETY MEASURES IN PLACE. BED LOCKED IN THE LOWEST POSITION. CALL LIGHT AND TABLE IN EASY REACH. SIDE RAILS UP TIMES 2.KEPT PATIENT CLEAN AND DRY.WILL ENDORSE FOR SUDHIR.
[2022-06-21 06:59] LABS: BASOPHILS % (AUTO) 0.3 % (0.0-2.0); EOSINOPHILS % (AUTO) 0.1 % (0.0-6.0); HEMATOCRIT 31 % (39-51); HEMOGLOBIN 9.6 g/dL (13.5-17.5); LYMPHOCYTES # (AUTO) 0.5 K/uL (0.8-4.8); LYMPHOCYTES % (AUTO) 10.5 % (20.0-44.0); MEAN CORPUSCULAR HGB CONC 31 g/dl (31.0-36.0); MEAN CORPUSCULAR VOLUME 97 fL (80-96); MONOCYTES # (AUTO) 0.1 K/uL (0.1-1.30); MONOCYTES % (AUTO) 1.4 % (2.0-12.0); NEUTROPHILS % (AUTO) 87.7 % (43.0-81.0); PLATELET COUNT (AUTO) 85 K/uL (150-450); RED BLOOD CELL COUNT(AUTO) 3.18 MIL/uL (4.5-6.0); WHITE BLOOD COUNT (AUTO) 4.5 K/uL (4.3-11.0)
--- NOTE | 2022-06-21 06:59 | NUR ---
RN NOTES CHECKED BLOOD SUGAR AT 0647 NOTED 495. PATIENT ALERT AND ORIENTED. WILL ENDORSE TO CONTINUE TO MONITOR CLOSELY.
--- NOTE | 2022-06-21 07:37 | NUR ---
PRODUCTION BROACHING MACHINE OPERATOR NOTES PATIENT AWAKE IN BED. PATIENT IS A/O TIMES 2, ON TELE MONITOR READING SR. NO PAIN NOTED. NO SOB NOTED. NO DISTRESS NOTED. PATIENT'S RIGHT UPPER ARM FISTULA DRESSING INTACT AND NO BLEEDING NOTED WITH COLOSTOMY BAG. COLOSTOMY BAG IN PLACE. ALSO HAS LEFT UPPER ARM IV HL ACCESS. FLUSHED PATENT AND INTACT. PATIENT IS ANURIC. ALL NEEDS ATTENDED. ALL SAFETY MEASURES IN PLACE. BED LOCKED IN THE LOWEST WILL CONT TO MONITOR
[2022-06-21 08:00] VITALS: BP 120/43
[2022-06-21] MEDS: PANTOPRAZOLE 40 MG TABLET.DR PO SCH (08:03)
[2022-06-21 08:22] LABS: CREATININE 4.3 mg/dL (0.6-1.3); POTASSIUM 4.5 mmol/L (3.5-5.1)
[2022-06-21] MEDS: MIDODRINE HCL (5MG) 5 MG TABLET PEG SCH ×3 (09:13→16:32)
[2022-06-21] MEDS: CHOLECALCIFEROL 1,000 UNIT TABLET (VIT D3) PO SCH (09:13)
[2022-06-21] MEDS: HYDROCORTISONE SOD SUCCINATE 100 MG/2 ML VIAL IV SCH (09:14)
[2022-06-21] MEDS: FLUDROCORTISONE 0.1 MG TABLET PO SCH (09:14)
[2022-06-21] MEDS: FINASTERIDE (5 MG) 5 MG TABLET PO SCH (09:14)
[2022-06-21] MEDS: PROSOURCE / PROSTAT (PYXIS) 30 ML UDC GT SCH (09:14)
[2022-06-21] MEDS: MUPIROCIN OINT 2% 22 GM TUBE NS SCH ×2 (09:15→21:01)
[2022-06-21] MEDS: DAKINS QUARTER STRENGTH (0.125%) 480 ML BOTTLE TOP SCH (09:15)
[2022-06-21] MEDS: POLYVINYL ALCOHOL 15 ML BOTTLE EACHEYE SCH ×2 (09:20→16:33)
[2022-06-21] MEDS: DORZOLAMIDE OPTH 2% 10 ML BOTTLE EACHEYE SCH (09:20)
[2022-06-21] MEDS: BRIMONIDINE TARTRATE OPHT SOLN 5 ML BOTTLE EACHEYE SCH (09:20)
[2022-06-21] MEDS: TIMOLOL 0.5% SOLN OPHTH 5 ML BOTTLE EACHEYE SCH (09:21)
[2022-06-21] MEDS: THERAHONEY GEL 1.5 OZ TUBE TP SCH ×2 (09:22→16:33)
--- NOTE | 2022-06-21 09:56 | NUR ---
telephone coin box collector note called to dr lenz notified that lab called, blood sugar 58mg\dl ,no aggressive sliding scale, ok to give coverage with mild ,will give 10 units regular insulin as ordered per sliding norris also mid line nurse at bedside, new mid line inserted on lt fa . old new one is not working, is leaking
--- NOTE | 2022-06-21 11:39 | NUR ---
radio television technical director note rounds made reposition done , all needs attended, will monitor
[2022-06-21 12:27] VITALS: BP 141/63
[2022-06-21 12:34] LABS: BAND % (MANUAL) 4 % (0.0-5.0); LYMPHOCYTES % (MANUAL) 14 % (16-48); MONOCYTES % (MANUAL) 2 % (0-11.0); NEUTROPHILS % (MANUAL) 80 (42-76)
--- NOTE | 2022-06-21 12:36 | NUR ---
teletype clerk note dr lenz notified blood sugar 413 mg\dl ok to give coverage with 10 units insulin ,given as ordered
--- NOTE | 2022-06-21 15:38 | NUR ---
telephone claims representative note dr lenz at bedside notified that rt upper am av fistula no bleeding noted , also notified that na 129 aware that giron sugar last time 413 mg\dl,stated that cont do coverage with sliding scale will f\u
[2022-06-21] MEDS ORDERED: HYDROCORTISONE SOD SUCCINATE 100 MG/2 ML VIAL IV SCH (16:00)
[2022-06-21 16:09] VITALS: BP_SYST 122; BP_SYST 153; BP_DIAS 54; BP_DIAS 75
--- NOTE | 2022-06-21 16:22 | NUR ---
it telecom technician note spoke with dr elnz clarify dose solu Cortef 50 mg iv dose daily and notified that morning dose given at 0900 stated ok to start daily tomorrow since 50 mg iv was given today earlier in am
--- NOTE | 2022-06-21 17:36 | NUR ---
telephone betting clerk note per dr lenz and daughter request dont give coverage with sliding scale if blood sugar less then 300 , blood sugar now Accu check 270mgl \dl , will f\u
--- NOTE | 2022-06-21 18:33 | NUR ---
telephone collector note patient in bed alert with confusion , family at bedside , on colostomy changed as ordered keep clean dry fed by lip cutter , not in distress , on2l nc ,no sob noted lt fa midline in place and flush dwell call light within reach , safety measure implemented
--- NOTE | 2022-06-21 19:15 | NUR ---
james rn opening received patient in bed, legally blind. 2 family members at bed side, daughter feeding patient. no s/s of apparent distress on 2lpm of o2 via nc. denies any pain nor discomfort at this time. reading sr on the tele monitor with 60 bpm. no bleeding noted, bruit and thrill felt on RENÉ fistula. safety in place-- bed in lowest locked position, call light within reach, side rails up. will continue with patient's plan of care.
[2022-06-21 20:00] VITALS: BP 144/56
[2022-06-21] MEDS: SIMVASTATIN 10 MG TABLET PO SCH (22:13)
[2022-06-21] MEDS: TAMSULOSIN 0.4 MG CAP.SR.24H PO SCH (22:13)
[2022-06-21] MEDS: LATANOPROST EYE DROP 0.005% 2.5 ML BOTTLE EACHEYE SCH (22:14)
--- NOTE | 2022-06-22 07:32 | NUR ---
NOC RN NOTE NEEDS ATTENDED. REPORT GIVEN TO JESUS NARAYAN FOR CONTINUITY OF CARE.
[2022-06-22 07:33] LABS: BASOPHILS % (AUTO) 0.2 % (0.0-2.0); EOSINOPHILS % (AUTO) 0.5 % (0.0-6.0); HEMATOCRIT 34 % (39-51); HEMOGLOBIN 10.2 g/dL (13.5-17.5); LYMPHOCYTES # (AUTO) 0.6 K/uL (0.8-4.8); LYMPHOCYTES % (AUTO) 18.5 % (20.0-44.0); MEAN CORPUSCULAR HGB CONC 31 g/dl (31.0-36.0); MEAN CORPUSCULAR VOLUME 98 fL (80-96); MONOCYTES # (AUTO) 0.2 K/uL (0.1-1.30); MONOCYTES % (AUTO) 6.6 % (2.0-12.0); NEUTROPHILS # (AUTO) 2.6 K/uL (1.8-8.9); NEUTROPHILS % (AUTO) 74.2 % (43.0-81.0); PLATELET COUNT (AUTO) 76 K/uL (150-450); RED BLOOD CELL COUNT(AUTO) 3.42 MIL/uL (4.5-6.0); WHITE BLOOD COUNT (AUTO) 3.5 K/uL (4.3-11.0)
[2022-06-22] MEDS ORDERED: *INSULIN REGULAR(HUMULIN R)HUM 100 UNIT/ML VIAL SQ PRN (08:00)
[2022-06-22] MEDS ORDERED: INSULIN REGULAR, HUMAN 100 UNIT/ML 3 ML VIAL SQ PRN (08:00)
[2022-06-22] MEDS ORDERED: DEXTROSE 50%-WATER 50 ML DISP.SYRIN IV PRN (08:00)
[2022-06-22 08:09] LABS: CALCIUM, SERUM 9.3 mg/dL (8.5-10.1); CREATININE 4.7 mg/dL (0.6-1.3); POTASSIUM 4.3 mmol/L (3.5-5.1)
[2022-06-22] MEDS: MIDODRINE HCL (5MG) 5 MG TABLET PEG SCH ×3 (08:46→17:00)
[2022-06-22] MEDS: CHOLECALCIFEROL 1,000 UNIT TABLET (VIT D3) PO SCH (08:46)
[2022-06-22] MEDS: FAMOTIDINE (20 MG) 20 MG TABLET PO SCH (08:47)
[2022-06-22] MEDS: FINASTERIDE (5 MG) 5 MG TABLET PO SCH (08:47)
[2022-06-22] MEDS: PROSOURCE / PROSTAT (PYXIS) 30 ML UDC GT SCH (08:52)
[2022-06-22] MEDS: DORZOLAMIDE OPTH 2% 10 ML BOTTLE EACHEYE SCH (08:52)
[2022-06-22] MEDS: MUPIROCIN OINT 2% 22 GM TUBE NS SCH ×2 (08:52→20:18)
[2022-06-22] MEDS: BRIMONIDINE TARTRATE OPHT SOLN 5 ML BOTTLE EACHEYE SCH (08:52)
[2022-06-22] MEDS: TIMOLOL 0.5% SOLN OPHTH 5 ML BOTTLE EACHEYE SCH (08:52)
[2022-06-22] MEDS: POLYVINYL ALCOHOL 15 ML BOTTLE EACHEYE SCH ×2 (08:52→17:32)
[2022-06-22] MEDS: DAKINS QUARTER STRENGTH (0.125%) 480 ML BOTTLE TOP SCH (08:53)
[2022-06-22] MEDS: THERAHONEY GEL 1.5 OZ TUBE TP SCH ×2 (08:53→17:32)
[2022-06-22] MEDS: PANTOPRAZOLE 40 MG TABLET.DR PO SCH (08:54)
[2022-06-22] MEDS: ALBUMIN 25% 25 GM in PREMIX 1 EA IV PRN (12:06)
[2022-06-22] MEDS: BLOOD SUGAR DIAGNOSTIC 1 EACH STRIP IN SCH ×3 (12:41→21:19)
[2022-06-22 15:59] LABS: BAND % (MANUAL) 5 % (0.0-5.0); LYMPHOCYTES % (MANUAL) 25 % (16-48); MONOCYTES % (MANUAL) 5 % (0-11.0); NEUTROPHILS % (MANUAL) 65 (42-76)
[2022-06-22 16:00] VITALS: BP 146/71
--- NOTE | 2022-06-22 19:00 | NUR ---
RN CLOSING NOTES PATIENT IN THE BED DAUGHTER SITTING NEXT TO HIS BED. A/OX2 MAORI SPEAKING. PATIENT IS LEGALLY BLIND, NO S/S OF SOB OR DISTRESS ALL DUE MEDS GIVEN. HD DONE TODAY OUTPUT 1000CC. PATIENT KEPT CLEAN AND DRY THROUGHOUT THE SHIFT, ALL SAFETY MEASURES IMPLEMENTED AND INDORSED TO FARMWORKERS NURSE FOR SUDHIR.
--- NOTE | 2022-06-22 19:30 | NUR ---
WIND ENERGY SYSTEMS INSTALLER OPENING NOTE RECEIVED PATIENT IN BED, WITH HOB ELEVATED, ALERT AND ORIENTED X2, WITH FAMILY AT BEDSIDE. AFEBRILE AND NOT IN ANY FORM OF ACUTE DISTRESS. ON O2 INHALATION VIA NASAL CANNULA AT 2LPM. PATIENT IS LEGALLY BLIND. WITH IV ACCESS ON LEFT FOREARM MIDLINE AND RENÉ FISTULA. SAFETY MEASURES IN PLACE. KEPT BED IN LOCKED AND IN LOW POSITION. SIDE RAILS UP X2. ADVISED TO USE THE CALL LIGHT WHEN IN NEED OF ASSISTANCE.
[2022-06-22 20:00] VITALS: BP 106/57
[2022-06-22] MEDS: SIMVASTATIN 10 MG TABLET PO SCH (21:19)
[2022-06-22] MEDS: TAMSULOSIN 0.4 MG CAP.SR.24H PO SCH (21:19)
[2022-06-22] MEDS: LATANOPROST EYE DROP 0.005% 2.5 ML BOTTLE EACHEYE SCH (21:33)
[2022-06-23] VITALS (9 sets, daily range): BP systolic 74–119; BP diastolic 32–78
--- NOTE | 2022-06-23 06:30 | NUR ---
WATCH TRAIN ASSEMBLER CLOSING NOTE PATIENT IN BED, WITH HOB ELEVATED, ASLEEP BUT EASY TO AROUSE AND RESPONSIVE. AFEBRILE AND NOT IN ANY FORM OF ACUTE DISTRESS. ON O2 INHALATION VIA NASAL CANNULA AT 2LPM. PATIENT IS LEGALLY BLIND. ON TELE MONITORING WITH CURRENT READING OF SR 63. WITH IV ACCESS ON LEFT FOREARM MIDLINE AND RENÉ FISTULA. ON BILATERAL SOFT WRIST RESTRAINTS, NOTED WITH INTACT SKIN AND GOOD CIRCULATION. WITH RLQ COLOSTOMY, EMPTIED AND CHANGED BAG. MONITORED FOR ANY S/SX. OF HYPO/HYPERGLYCEMIA. MEDICATED ORDERED. TURNED AND REPOSITIONED EVEYR 2 HOURS AND TOLERATED TO PROMOTE PROPER CIRCULATION AND COMFORT. SAFETY MEASURES IN PLACE. KEPT BED IN LOCKED AND IN LOW POSITION. SIDE RAILS UP X2. ADVISED TO USE THE CALL LIGHT WHEN IN NEED OF ASSISTANCE. ALL NURSING NEEDS ATTENDED. ENDORSED TO INCOMING SHIFT FOR CONTINUITY OF CARE.
[2022-06-23 06:48] LABS: BASOPHILS % (AUTO) 0.4 % (0.0-2.0); EOSINOPHILS % (AUTO) 2.1 % (0.0-6.0); HEMATOCRIT 29 % (39-51); HEMOGLOBIN 9.4 g/dL (13.5-17.5); LYMPHOCYTES % (AUTO) 20.3 % (20.0-44.0); MEAN CORPUSCULAR HGB CONC 32 g/dl (31.0-36.0); MEAN CORPUSCULAR VOLUME 95 fL (80-96); MONOCYTES # (AUTO) 0.3 K/uL (0.1-1.30); MONOCYTES % (AUTO) 6.8 % (2.0-12.0); NEUTROPHILS # (AUTO) 3.4 K/uL (1.8-8.9); NEUTROPHILS % (AUTO) 70.4 % (43.0-81.0); PLATELET COUNT (AUTO) 72 K/uL (150-450); WHITE BLOOD COUNT (AUTO) 4.9 K/uL (4.3-11.0)
[2022-06-23] MEDS: BLOOD SUGAR DIAGNOSTIC 1 EACH STRIP IN SCH ×4 (06:52→22:04)
--- NOTE | 2022-06-23 07:31 | NUR ---
SOLID PROPELLANT PROCESSOR OPENING NOTE RECEIVED PATIENT IN BED, WITH HOB ELEVATED, ALERT AND ORIENTED X 1. AFEBRILE AND NOT IN ANY FORM OF ACUTE DISTRESS. ON O2 INHALATION VIA NASAL CANNULA AT 2 LPM. PATIENT IS LEGALLY BLIND. WITH IV ACCESS ON LEFT UPPER ARM MIDLINE AND RENÉ FISTULA. SAFETY MEASURES IN PLACE. KEPT BED IN LOCKED AND IN LOW POSITION. SIDE RAILS UP X 3. BILATERAL SOFT WRIST RESATRAINTS OMN FOR PATIENT SAFETY.
[2022-06-23 08:22] LABS: CALCIUM, SERUM 9.6 mg/dL (8.5-10.1); CREATININE 3.9 mg/dL (0.6-1.3); POTASSIUM 3.9 mmol/L (3.5-5.1)
[2022-06-23] MEDS: POLYVINYL ALCOHOL 15 ML BOTTLE EACHEYE SCH ×2 (09:12→17:08)
[2022-06-23] MEDS: PANTOPRAZOLE 40 MG TABLET.DR PO SCH (09:12)
[2022-06-23] MEDS: BRIMONIDINE TARTRATE OPHT SOLN 5 ML BOTTLE EACHEYE SCH (09:13)
[2022-06-23] MEDS: TIMOLOL 0.5% SOLN OPHTH 5 ML BOTTLE EACHEYE SCH (09:15)
[2022-06-23] MEDS: PROSOURCE / PROSTAT (PYXIS) 30 ML UDC GT SCH (09:15)
[2022-06-23] MEDS: MUPIROCIN OINT 2% 22 GM TUBE NS SCH ×2 (09:15→21:00)
[2022-06-23] MEDS: DORZOLAMIDE OPTH 2% 10 ML BOTTLE EACHEYE SCH (09:15)
[2022-06-23] MEDS ORDERED: MIDO10TA PO (09:15)
[2022-06-23] MEDS: FINASTERIDE (5 MG) 5 MG TABLET PO SCH (09:16)
[2022-06-23] MEDS: MIDODRINE HCL (5MG) 5 MG TABLET PEG SCH ×3 (09:16→17:08)
[2022-06-23] MEDS: CHOLECALCIFEROL 1,000 UNIT TABLET (VIT D3) PO SCH (09:16)
[2022-06-23] MEDS: DAKINS QUARTER STRENGTH (0.125%) 480 ML BOTTLE TOP SCH (09:17)
[2022-06-23] MEDS: THERAHONEY GEL 1.5 OZ TUBE TP SCH ×2 (09:18→17:00)
[2022-06-23] MEDS: INSULIN REGULAR, HUMAN 100 UNIT/ML 3 ML VIAL SQ PRN ×3 (12:41→22:42)
[2022-06-23 16:06] LABS: EOSINOPHILS % (MANUAL) 3 % (0-4); LYMPHOCYTES % (MANUAL) 14 % (16-48); MONOCYTES % (MANUAL) 3 % (0-11.0); NEUTROPHILS % (MANUAL) 80 (42-76)
--- NOTE | 2022-06-23 19:00 | NUR ---
RN NOTE REPORT RECEIVED FROM YIMI RN, PT IN BED IN NO ACUTE DISTRESS, AO X 1-2, BREATHING UNLABORED, SATURATION AT 99% ON 2L VIA NC, SR ON THE MONITOR, HR IS 64. IV LINE AT SARAH 20G, AND LFA MIDLINE PATENT AND FLUSHING WELL, RENÉ AVF IN PLACE, BRUIT AND THRILL NOTED. B SOFT WRIST RESTRAINTS IN PLACE, SKIN AND CIRCULATION CHECKED AND ARE WNL. SAFETY MEASURES IN PLACE, HOB KEPT ELEVATED, BED IS LOCKED AND AT LOWEST POSITION, CALL LIGHT WITHIN REACH OF PATIENT. WILL CONT TO MONITOR AND REASSESS.
--- NOTE | 2022-06-23 19:10 | NUR ---
SPACE PHYSICIST CLOSING NOTE PATIENT JUST RETURNED FROM MRI WITHOUT CONTRAST IN HIS BED. A/O X 1 COMORAN SPEAKING. BILATERAL WRIST RESTRAINTS, TELEMETRY AND OXYGEN ALL REAPPLIED. PATIENT IS LEGALLY BLIND, NO S/S OF SOB OR DISTRESS ALL DUE MEDS GIVEN CRUSHED IN APPLESUACE. PATINET ASSITED EATING 1;1 WITH PUREED DIET AND THICKEDNED LIQUIDS. ALL DRESSINGS CHANGEDN ORDERED. VOIDED INCONTINENT SMALL AMOUNT X 2. HAD OUT 300 MLS LIQUID STOOL FROM COLOSTOMY. PATIENT KEPT CLEAN AND DRY THROUGHOUT THE SHIFT, ALL SAFETY MEASURES IMPLEMENTED AND ENDORSED TO CHICKEN AND FISH BUTCHER NURSE FOR SUDHIR.
[2022-06-23] MEDS: TAMSULOSIN 0.4 MG CAP.SR.24H PO SCH (22:03)
[2022-06-23] MEDS: LATANOPROST EYE DROP 0.005% 2.5 ML BOTTLE EACHEYE SCH (22:03)
[2022-06-23] MEDS: SIMVASTATIN 10 MG TABLET PO SCH (22:03)
--- NOTE | 2022-06-23 22:13 | NUR ---
RN NOTE Accucheck at 2210 resulted 455, repeated and revealed 415. Dr Hickman was notified, stated to administer insulin per sliding scale.
[2022-06-24] VITALS: BP 118/42
[2022-06-24 04:00] VITALS: BP 134/68
--- NOTE | 2022-06-24 07:31 | NUR ---
BEEF FARMER OPENING NOTE RECEIVED PATIENT IN BED, WITH HOB ELEVATED, ALERT AND ORIENTED X 1. AFEBRILE AND NOT IN ANY FORM OF ACUTE DISTRESS. ON O2 INHALATION VIA NASAL CANNULA AT 2 LPM. PATIENT IS LEGALLY BLIND. WITH IV ACCESS ON LEFT UPPER ARM MIDLINE AND RENÉ FISTULA. SAFETY MEASURES IN PLACE. KEPT BED IN LOCKED AND IN LOW POSITION. SIDE RAILS UP X 3. BILATERAL SOFT WRIST RESATRAINTS OMN FOR PATIENT SAFETY. WILL CONTINUE TO MONITOR AND FALLOW POC
[2022-06-24] MEDS: BLOOD SUGAR DIAGNOSTIC 1 EACH STRIP IN SCH ×2 (07:38→12:12)
[2022-06-24] MEDS: PANTOPRAZOLE 40 MG TABLET.DR PO SCH (07:38)
[2022-06-24 08:00] VITALS: BP 134/68
[2022-06-24] MEDS: INSULIN REGULAR, HUMAN 100 UNIT/ML 3 ML VIAL SQ PRN (08:02)
[2022-06-24] MEDS: FAMOTIDINE (20 MG) 20 MG TABLET PO SCH (08:15)
[2022-06-24] MEDS: CHOLECALCIFEROL 1,000 UNIT TABLET (VIT D3) PO SCH (08:15)
[2022-06-24] MEDS: PROSOURCE / PROSTAT (PYXIS) 30 ML UDC GT SCH (08:15)
[2022-06-24] MEDS: FINASTERIDE (5 MG) 5 MG TABLET PO SCH (08:15)
[2022-06-24] MEDS: MIDODRINE HCL (5MG) 5 MG TABLET PEG SCH ×2 (08:15→12:25)
[2022-06-24] MEDS: BRIMONIDINE TARTRATE OPHT SOLN 5 ML BOTTLE EACHEYE SCH (08:16)
[2022-06-24] MEDS: POLYVINYL ALCOHOL 15 ML BOTTLE EACHEYE SCH (08:17)
[2022-06-24] MEDS: TIMOLOL 0.5% SOLN OPHTH 5 ML BOTTLE EACHEYE SCH (08:17)
[2022-06-24] MEDS: DORZOLAMIDE OPTH 2% 10 ML BOTTLE EACHEYE SCH (08:18)
[2022-06-24] MEDS: MUPIROCIN OINT 2% 22 GM TUBE NS SCH (08:19)
[2022-06-24] MEDS: THERAHONEY GEL 1.5 OZ TUBE TP SCH (08:21)
[2022-06-24] MEDS: DAKINS QUARTER STRENGTH (0.125%) 480 ML BOTTLE TOP SCH (08:21)
[2022-06-24] MEDS ORDERED: EPOETIN ALFA (10,000 UNIT) 10,000 UNIT/ML VIAL IV ONE (10:00)
[2022-06-24] MEDS ORDERED: EPOETIN ALFA-EPBX 10,000 UNIT/ML VIAL IV ONE (11:00)
[2022-06-24 11:37] LABS: BASOPHILS % (AUTO) 0.5 % (0.0-2.0); EOSINOPHILS % (AUTO) 4.3 % (0.0-6.0); HEMATOCRIT 29 % (39-51); HEMOGLOBIN 9.1 g/dL (13.5-17.5); LYMPHOCYTES # (AUTO) 1.1 K/uL (0.8-4.8); LYMPHOCYTES % (AUTO) 23.6 % (20.0-44.0); MEAN CORPUSCULAR HGB CONC 31 g/dl (31.0-36.0); MEAN CORPUSCULAR VOLUME 96 fL (80-96); MONOCYTES # (AUTO) 0.4 K/uL (0.1-1.30); MONOCYTES % (AUTO) 8.4 % (2.0-12.0); NEUTROPHILS # (AUTO) 2.8 K/uL (1.8-8.9); NEUTROPHILS % (AUTO) 63.2 % (43.0-81.0); PLATELET COUNT (AUTO) 60 K/uL (150-450); RED BLOOD CELL COUNT(AUTO) 3.03 MIL/uL (4.5-6.0); WHITE BLOOD COUNT (AUTO) 4.5 K/uL (4.3-11.0)
[2022-06-24 11:39] LABS: CALCIUM, SERUM 9.5 mg/dL (8.5-10.1); CREATININE 4.5 mg/dL (0.6-1.3); POTASSIUM 4.3 mmol/L (3.5-5.1)
[2022-06-24 12:00] VITALS: BP 128/58
[2022-06-24 12:25] VITALS: BP 120/65
--- NOTE | 2022-06-24 13:47 | NUR ---
RN NOTE PATIENT IS AT STABLE CONDITION .DISCHARGE ORDER RECEVED , REPORT WAS GIVEN TO THE JESUS HARRIS FROM THE [facility].ALL IV LINES WAS REMOVED .DISCHARGE INSTRUCTUIONS PROVIDED TO THE EMT TEAM AND JESUS WASHINGTON .DAUGHTER CAROLE WAS INFORMED ABOUT HER FATHER TO BE TR[facility]FRED [facility] TO [facility] .
[2022-06-25 05:51] LABS: EOSINOPHILS % (MANUAL) 5 % (0-4); LYMPHOCYTES % (MANUAL) 25 % (16-48); MONOCYTES % (MANUAL) 10 % (0-11.0); NEUTROPHILS % (MANUAL) 60 (42-76)
== END 2022-06-24 13:45 | DRG 264 ==
LOC: ER 13:36 → TELE1 23:23 → TELE-TD 06-07 02:25 → TELE1 06-07 13:47 → ICU 06-08 05:04 → TELE1 06-20 17:18
PROVIDERS: ADMIT Nurse Practitioner Acute Care; ATTEND Internal Medicine
PROC: 30233N1 Transfusion of Nonautologous Red Blood Cells into Peripheral Vein, Percutaneous Approach (ICD-10-PCS; 2022-06-06)
PROC: XW13325 Transfusion of Convalescent Plasma (Nonautologous) into Peripheral Vein, Percutaneous Approach, New Technology Group 5 (ICD-10-PCS; 2022-06-06)
PROC: 30233R1 Transfusion of Nonautologous Platelets into Peripheral Vein, Percutaneous Approach (ICD-10-PCS; 2022-06-06)
PROC: 0X383ZZ Control Bleeding in Right Upper Arm, Percutaneous Approach (ICD-10-PCS; principal; 2022-06-07)
PROC: 0XQ9XZZ Repair Left Upper Arm, External Approach (ICD-10-PCS; 2022-06-07)
PROC: 30233M1 Transfusion of Nonautologous Plasma Cryoprecipitate into Peripheral Vein, Percutaneous Approach (ICD-10-PCS; 2022-06-07)
PROC: 0BH18EZ Insertion of Endotracheal Airway into Trachea, Via Natural or Artificial Opening Endoscopic (ICD-10-PCS; 2022-06-08)
PROC: 5A1945Z Respiratory Ventilation, 24-96 Consecutive Hours (ICD-10-PCS; 2022-06-08)
PROC: 5A1D70Z Performance of Urinary Filtration, Intermittent, Less than 6 Hours Per Day (ICD-10-PCS; 2022-06-08)
PROC: 05HA33Z Insertion of Infusion Device into Left Brachial Vein, Percutaneous Approach (ICD-10-PCS; 2022-06-08)
PROC: 0VB50ZZ Excision of Scrotum, Open Approach (ICD-10-PCS; 2022-06-18)
PROC: 05HA33Z Insertion of Infusion Device into Left Brachial Vein, Percutaneous Approach (ICD-10-PCS; 2022-06-21)
DX: T82.838A Hemorrhage due to vascular prosthetic devices, implants and grafts, initial encounter (principal); A41.89 Other specified sepsis; L89.893 Pressure ulcer of other site, stage 3; G93.41 Metabolic encephalopathy; N18.6 End stage renal disease; U07.1 COVID-19; R65.21 Severe sepsis with septic shock; J96.01 Acute respiratory failure with hypoxia; D65 Disseminated intravascular coagulation [defibrination syndrome]; I46.9 Cardiac arrest, cause unspecified; R57.1 Hypovolemic shock; J69.0 Pneumonitis due to inhalation of food and vomit; D61.818 Other pancytopenia; I12.0 Hypertensive chronic kidney disease with stage 5 chronic kidney disease or end stage renal disease; K86.1 Other chronic pancreatitis; D68.59 Other primary thrombophilia; D62 Acute posthemorrhagic anemia; E27.40 Unspecified adrenocortical insufficiency; L97.429 Non-pressure chronic ulcer of left heel and midfoot with unspecified severity; J90 Pleural effusion, not elsewhere classified; J81.1 Chronic pulmonary edema; G93.1 Anoxic brain damage, not elsewhere classified; E44.0 Moderate protein-calorie malnutrition; R64 Cachexia; Z68.1 Body mass index [BMI] 19.9 or less, adult; E87.1 Hypo-osmolality and hyponatremia; D68.9 Coagulation defect, unspecified; T82.511A Breakdown (mechanical) of surgically created arteriovenous shunt, initial encounter; Z74.09 Other reduced mobility; Z99.2 Dependence on renal dialysis; Y92.129 Unspecified place in nursing home as the place of occurrence of the external cause; Y71.2 Prosthetic and other implants, materials and accessory cardiovascular devices associated with adverse incidents; E11.22 Type 2 diabetes mellitus with diabetic chronic kidney disease; E11.51 Type 2 diabetes mellitus with diabetic peripheral angiopathy without gangrene; E11.621 Type 2 diabetes mellitus with foot ulcer; E11.649 Type 2 diabetes mellitus with hypoglycemia without coma; E11.65 Type 2 diabetes mellitus with hyperglycemia; Z93.3 Colostomy status; E78.00 Pure hypercholesterolemia, unspecified; K21.9 Gastro-esophageal reflux disease without esophagitis; Z87.09 Personal history of other diseases of the respiratory system; Z87.19 Personal history of other diseases of the digestive system; M19.90 Unspecified osteoarthritis, unspecified site; Z89.512 Acquired absence of left leg below knee; Z79.4 Long term (current) use of insulin; Z79.82 Long term (current) use of aspirin; Z79.899 Other long term (current) drug therapy; D63.8 Anemia in other chronic diseases classified elsewhere; L89.159 Pressure ulcer of sacral region, unspecified stage; Z89.511 Acquired absence of right leg below knee; M89.8X9 Other specified disorders of bone, unspecified site; N40.0 Benign prostatic hyperplasia without lower urinary tract symptoms; F09 Unspecified mental disorder due to known physiological condition; R56.9 Unspecified convulsions; N50.89 Other specified disorders of the male genital organs; N27.1 Small kidney, bilateral; F03.90 Unspecified dementia, unspecified severity, without behavioral disturbance, psychotic disturbance, mood disturbance, and anxiety; E88.09 Other disorders of plasma-protein metabolism, not elsewhere classified; H54.7 Unspecified visual loss; Z78.9 Other specified health status; E86.1 Hypovolemia; Z79.52 Long term (current) use of systemic steroids; Z87.440 Personal history of urinary (tract) infections; S51.811A Laceration without foreign body of right forearm, initial encounter; X58.XXXA Exposure to other specified factors, initial encounter; Y92.9 Unspecified place or not applicable; D72.819 Decreased white blood cell count, unspecified; D64.9 Anemia, unspecified; H40.9 Unspecified glaucoma
CPT/HCPCS: 31720; 36410; 36415; 36600; 70551-TC; 71045-TC; 76700-TC; 80048-TC; 80053-TC; 80076-TC; 80202-TC; 82140-TC; 82248-TC; 82533; 82607-TC; 82728-TC; 82784; 82803-TC; 82962-TC; 83540-TC; 83605-TC; 83690-TC; 83735-TC; 84100-TC; 84155; 84165; 84439-TC; 84443-TC; 84484-TC; 85025-TC; 85045-TC; 85385-TC; 85396; 85610-TC; 85730-TC; 86140-TC; 86225; 86235; 86334; 86431-TC; 86706; 86803; 86850-TC; 87040-TC; 87081-TC; 87340; 87806; 90935-TC; 92526; 92611-TC; 92950-TC; 94002-TC; 94003-TC; 94799-TC; 99082-TC; A4216; A4223; A6253; A6403; C9803; G0378; J0171; J0885; J1644; J1720; J1815; J2185; J2543; J3010; J3370; J3430; J3490; J7030; J7050; J7060; P9012; P9016; P9017; P9034; P9047; Q9966; Q9967; U0003